=== PATIENT | female | born 1935 | race Caucasian/White ===

== ENCOUNTER → 2016-07-29 | Day surgery (SDC) | payer MEDICARE ==
[~2016-07-29] VITALS: Ht 152.4 cm; Wt 89.4 kg
[~2016-07-29] MED LIST: /AMIO20TA OR; /WARF25TA; /WARF25TA OR; /WARF25TA PO; /WARF5TA OR; ACET500T2 OR; ALPH0.156; ASPI81TA83 OR; ATEN50TA2 PO; BABY81CH OR; BENETAB2 PO; BISA10SU PR; BISAC5TA PO; CIPR500T3 PO; COUM2.5T11 PO; D5W/0.2% SODIUM CHLORIDE 250 ML IV SCH; ECOT81TA5 PO; ERYTHROMYCIN OPHTH OINT As Ordered ONE; ERYTHROMYCIN OPHTH OINT XX ONE; FLEC50TA2 PO; FURO20TA2 PO; GLIP5TAB8 PO; HYDR25TA6 PO; Hydroxychloroquine OR; IMDU60TA PO; ISOSORBIDE MONONITRATE PO; LABETALOL HCL 100 MG/20 ML VIAL As Ordered ONE; LIDOCAINE 2% W/EPIN INJ 20ML **PRES FREE As Ordered ONE; LIDOCAINE 2% W/EPIN INJ 20ML **PRES FREE XX ONE; LIDOCAINE 4% INJ 5 ML AMP XX ONE; LISI20TA5 OR; LOPR50TA OR; METF500T4 OR; METF500T4 PO; MIDAZOLAM INJ 2 MG/2 ML VIAL (J2250) As Ordered ONE; MOM30SS PO; MULTIVIT OR; MULTIVIT PO; NAPR250T PO; NITR0.4S SL; OMEP20TA7 OR; PERC10TA PO; PERC5TAB6 PO; PERC5TAB8 PO; PERC7.5T12 PO; PERC7.5T8 PO; PERCOCET PO; POVIDONE-IODINE 5% OPHTH PREP SOL 30ML As Ordered ONE; PRAV40TA2 PO; PRESCAP PO; Pradaxa PO; SIMV40TA2 OR; SITA50TAB PO; SPIR25TA2 PO; TYLE325T5 PO; VITA-113 PO; VITA100T OR; XARE15TA PO; [UNRECOGNIZED DRUG - OTHER] OS; [UNRECOGNIZED DRUG - OTHER] PO; fentaNYL 100 MCG/2 ML INJECTION (J3010) As Ordered ONE; hydroxychloroquine PO; iron OR; miralax OR
[2016-07-29] MEDS: LIDOCAINE 4% INJ 5 ML AMP OU ONE (12:30)
[2016-07-29 15:55] VITALS: BP 150/68
--- NOTE | 2016-07-30 12:11 | RO ---
DATE OF PROCEDURE: 07/29/2016 PREOPERATIVE DIAGNOSIS: Visually significant dermatochalasis both eyes. POSTOPERATIVE DIAGNOSIS: Visually significant dermatochalasis both eyes status post blepharoplasty. PROCEDURE: Bilateral upper lid blepharoplasty. SURGEON: Socrates Dunaway DO FACS TOPOGRAPHICAL SURVEYOR: ANESTHESIA: Local, 2% lidocaine with epinephrine and sedation and monitoring by anesthesia. INDICATION: Visually significant dermatochalasis both eyes. ESTIMATED BLOOD LOSS: 5 mL. COMPLICATIONS: None. PROCEDURE IN DETAIL: After obtaining informed consent, the patient was taken to the operating room and prepped and draped in a sterile fashion. The upper lids were marked for blepharoplasty and 2% lidocaine with epinephrine was injected into the upper lids for anesthetic. Bovie cutting cautery was used to remove the excess skin and subcutaneous tissues, including a muscle flap of the orbicularis. The lids were closed with #6-0 nylon running suture bilaterally. At the end of the case, there was no active hemorrhaging. The patient will apply ice packs and will use erythromycin ointment four times a day, and will followup in the office.
== END | disposition home or self-care (01) ==
LOC: M SDC 11:22
PROVIDERS: ATTEND Ophthalmology
DX: H02.831 Dermatochalasis of right upper eyelid (principal); H02.834 Dermatochalasis of left upper eyelid; E11.9 Type 2 diabetes mellitus without complications; I48.91 Unspecified atrial fibrillation; G47.30 Sleep apnea, unspecified; Z79.899 Other long term (current) drug therapy; Z79.02 Long term (current) use of antithrombotics/antiplatelets; Z88.0 Allergy status to penicillin; I10 Essential (primary) hypertension; E78.5 Hyperlipidemia, unspecified; D64.9 Anemia, unspecified
CPT/HCPCS: 15823; 88302; J2250; J3010

== ENCOUNTER → 2016-08-16 | Outpatient (REF) | payer MEDICARE ==
[~2016-08-16] MED LIST changes: -D5W/0.2% SODIUM CHLORIDE 250 ML IV SCH; -ERYTHROMYCIN OPHTH OINT As Ordered ONE; -ERYTHROMYCIN OPHTH OINT XX ONE; -LABETALOL HCL 100 MG/20 ML VIAL As Ordered ONE; -LIDOCAINE 2% W/EPIN INJ 20ML **PRES FREE As Ordered ONE; -LIDOCAINE 2% W/EPIN INJ 20ML **PRES FREE XX ONE; -LIDOCAINE 4% INJ 5 ML AMP XX ONE; -MIDAZOLAM INJ 2 MG/2 ML VIAL (J2250) As Ordered ONE; -POVIDONE-IODINE 5% OPHTH PREP SOL 30ML As Ordered ONE; -fentaNYL 100 MCG/2 ML INJECTION (J3010) As Ordered ONE
== END ==
LOC: M LAB REF 11:52
PROVIDERS: ATTEND Nurse Practitioner Adult Health
DX: R07.2 Precordial pain (principal)

== ENCOUNTER 2017-03-01 07:14 | Emergency (ER) | payer MEDICARE ==
[~2017-03-01] VITALS: Ht 152.4 cm; Wt 87.7 kg
[~2017-03-01 07:14] MED LIST changes: -COUM2.5T11 PO; +COUM2.5T17 PO; +PERC5TAB12 PO; -PERC5TAB6 PO
[2017-03-01] MEDS ORDERED: HYDR200T3 (07:44)
[2017-03-01] MEDS ORDERED: BRIM1OPD (07:44)
[2017-03-01] MEDS ORDERED: NITR0.4S14 (07:44)
[2017-03-01] MEDS ORDERED: ASPIRIN 81 MG CHEW TABLET PO ONE (07:45)
[2017-03-01 08:36] LABS: INR 1.05
[2017-03-01 08:54] LABS: CALCIUM LEVEL 9.1 MG/DL (8.8-10.2); CREATININE FOR GFR 1.34 MG/DL (0.55-1.02); GLOMERULAR FILTRATION RATE 40.2 (>32); POTASSIUM SERUM 4.3 MEQ/L (3.5-5.1)
[2017-03-01 08:57] LABS: BASO % 0.6 % (0.0-1.0); EOS # 0.2 K/mm3 (0.0-0.50); LARGE UNSTAINED CELL # 0.1 K/mm3 (0.0-0.4); LARGE UNSTAINED CELL % 2.3 % (0.0-4.0); LYMPH # 0.8 K/mm3 (1.5-4.5); LYMPH % 16.7 % (24.0-44.0); MEAN CORPUSCULAR HEMOGLOBIN 29.5 pg (27.0-33.0); MEAN CORPUSCULAR HGB CONC 32.7 g/dl (32.0-36.5); MEAN CORPUSCULAR VOLUME 90.3 fl (80.0-96.0); MONO # 0.4 K/mm3 (0.0-0.8); MONO % 9.4 % (0.0-5.0); NEUTROPHILS # 3.2 K/mm3 (1.8-7.7); PLATELET COUNT, AUTOMATED 285 k/mm3 (150-450); RED CELL DISTRIBUTION WIDTH 14.2 % (11.5-14.5); WHITE BLOOD COUNT 4.7 K/mm3 (4.0-10.0)
[2017-03-01] MEDS ORDERED: AMIODARONE HCL 150 MG in APPROPRIATE DILUENT 1 EA IV STA ×2 (09:10→10:01)
[2017-03-01] MEDS ORDERED: METOPROLOL TART 50 MG TAB PO ONE ×2 (09:15→12:30)
--- NOTE | 2017-03-01 11:14 | REP ---
PORTABLE CHEST: AP portable view of the chest is performed and compared to prior study of 05/22/2015. Bibasilar interstitial prominence is stable. There is cardiomegaly. There is no acute infiltrate. There is mild calcification of the thoracic aorta. The mediastinal silhouette is unchanged. IMPRESSION: Cardiomegaly and stable chronic findings without evidence of acute infiltrate. Signed by Christopher Davies MD 03/01/2017 07:30 P
[2017-03-01] MEDS: METOPROLOL 5 MG/5 ML VIAL IV SCH ×3 (11:32→11:42)
[2017-03-01 11:42] VITALS: BP 136/80
[2017-03-01] MEDS ORDERED: METO100T5 PO (14:01)
[2017-03-01] MEDS ORDERED: PACE200T PO (14:01)
[2017-03-01 14:30] VITALS: BP 179/75
--- NOTE | 2017-03-02 05:57 | ECGEPIP ---
Stationary ECG Study [facility] - ED Test Date: 2017-03-01 Pat Name: BIPIN YUSUF Department: Room: - Gender: F Methods Examiner: janette : 1935 Requested By: Jabari Jacobs Order Number: [id number] Reading MD: Jabari Francis Measurements Intervals [place] Rate: 150 P: 177 DC: 74 QRS: 71 QRSD: 143 T: -1 QT: 316 QTc: 500 Interpretive Statements ATRIAL FIBRILLATION V FLUTTER WITH 2:1 FIXED RATIO RIGHT BUNDLE BRANCH BLOCK SIMILAR TO 05/22/15 Electronically Signed On 03-02-2017 5:57:38 EDT by Jabari Francis
--- NOTE | 2017-03-02 06:04 | ECGEPIP ---
Stationary ECG Study [facility] - ED Test Date: 2017-03-01 Pat Name: BIPIN YUSUF Department: Room: - Gender: F Stallion Manager: : 1935 Requested By: Jabari Jacobs Order Number: [id number] Reading MD: Jabari Francis Measurements Intervals [place] Rate: 97 P: 16 HI: 193 QRS: 36 QRSD: 148 T: 23 QT: 362 QTc: 460 Interpretive Statements ATRIAL FIBRILLATION WIHT OCCASIONAL SINUS RHYTHM RIGHT BUNDLE BRANCH BLOCK Electronically Signed On 03-02-2017 6:03:48 EDT by Jabari Fracnis
--- NOTE | 2017-03-02 06:04 | ECGEPIP ---
Stationary ECG Study [facility] - ED Test Date: 2017-03-01 Pat Name: BIPIN YUSUF Department: Room: - Gender: F Eyeglass Cutter: jeliceo : 1935 Requested By: Jabari Jacobs Order Number: [id number] Reading MD: Jabari Francis Measurements Intervals [place] Rate: 59 P: 2 [place]: 174 QRS: 36 QRSD: 146 T: 32 QT: 425 QTc: 423 Interpretive Statements SINUS BRADYCARDIA WITH SINUS ARRHYTHMIA RIGHT BUNDLE BRANCH BLOCK RHYTHM CHANGE COMPARED TO PRIOR ON SAME DATE Electronically Signed On 03-02-2017 6:04:19 EDT by Jabari Francis
== END 2017-03-01 14:52 | disposition home or self-care (01) ==
LOC: M ED 07:14
DX: I48.0 Paroxysmal atrial fibrillation (principal); I25.10 Atherosclerotic heart disease of native coronary artery without angina pectoris; I12.9 Hypertensive chronic kidney disease with stage 1 through stage 4 chronic kidney disease, or unspecified chronic kidney disease; E78.4 Other hyperlipidemia; N18.4 Chronic kidney disease, stage 4 (severe)

== ENCOUNTER 2017-04-29 11:03 | Emergency (ER) | payer MEDICARE ==
[~2017-04-29] VITALS: Ht 152.4 cm; Wt 88.6 kg
[~2017-04-29 11:03] MED LIST changes: +BRIM1OPD; +HYDR200T3; +METO100T5 PO; +NITR0.4S14; +PACE200T PO
--- NOTE | 2017-04-29 14:21 | REP ---
Clinical: Throat pain. Technique: AP and lateral soft tissue neck radiographs. Findings: The airway appears patent, midline and normal. The surrounding soft tissues are grossly unremarkable and without prevertebral soft tissue swelling, subcutaneous emphysema, or radiodense foreign body. Advanced degenerative disc osteophyte complexes noted throughout the visualized cervical and upper thoracic spine. Impression: No obvious swelling, subcutaneous emphysema or foreign body. Advanced degenerative changes of the cervical spine. Signed by John Chavez MD 04/29/2017 02:12 P
[2017-04-29 14:37] VITALS: BP 140/75
== END 2017-04-29 14:41 | disposition home or self-care (01) ==
LOC: M ED 11:03
DX: J04.0 Acute laryngitis (principal); I10 Essential (primary) hypertension; Z79.899 Other long term (current) drug therapy; Z79.82 Long term (current) use of aspirin; Z88.0 Allergy status to penicillin

== ENCOUNTER 2017-06-19 08:20 | Day surgery (SDC) | payer MEDICARE ==
[2017-06-19] MEDS ORDERED: NS 1,000 ML IV (09:30)
[2017-06-19] MEDS ORDERED: LIDOCAINE 2% INJ 100 MG/5 ML SDV (FOR ANES.) As Ordered (10:00)
[2017-06-19] MEDS ORDERED: PROPOFOL 200 MG/20 ML VIAL As Ordered (10:00)
== END 2017-06-19 10:30 | disposition home or self-care (01) ==
LOC: M OPP 08:20
DX: R19.5 Other fecal abnormalities (principal); K62.5 Hemorrhage of anus and rectum; Z86.010 Personal history of colon polyps; D12.4 Benign neoplasm of descending colon; D12.3 Benign neoplasm of transverse colon; D12.2 Benign neoplasm of ascending colon; D12.0 Benign neoplasm of cecum; R00.8 Other abnormalities of heart beat; I48.91 Unspecified atrial fibrillation; R07.89 Other chest pain; I10 Essential (primary) hypertension; E78.5 Hyperlipidemia, unspecified; R60.0 Localized edema; E11.9 Type 2 diabetes mellitus without complications; K57.32 Diverticulitis of large intestine without perforation or abscess without bleeding; K21.9 Gastro-esophageal reflux disease without esophagitis; R12 Heartburn; M19.90 Unspecified osteoarthritis, unspecified site; M54.9 Dorsalgia, unspecified; Z78.0 Asymptomatic menopausal state; G47.30 Sleep apnea, unspecified; R06.83 Snoring; K44.9 Diaphragmatic hernia without obstruction or gangrene; E66.9 Obesity, unspecified; Z87.19 Personal history of other diseases of the digestive system; Z85.828 Personal history of other malignant neoplasm of skin; Z96.643 Presence of artificial hip joint, bilateral; Z96.653 Presence of artificial knee joint, bilateral; Z88.0 Allergy status to penicillin; Z79.82 Long term (current) use of aspirin; Z79.899 Other long term (current) drug therapy; Z79.01 Long term (current) use of anticoagulants
CPT/HCPCS: 45385

== ENCOUNTER → 2017-09-24 | Outpatient (REF) | payer MEDICARE ==
[2017-09-24 20:35] LABS: PHOSPHORUS LEVEL 4.8 MG/DL (2.5-4.9)
== END ==
LOC: M LAB REF 17:41
DX: N18.3 Chronic kidney disease, stage 3 (moderate) (principal)
CPT/HCPCS: 84100

== ENCOUNTER → 2018-07-15 | Outpatient (CLI) | payer MEDICARE ==
[~2018-07-15] MED LIST changes: +SPIR-10 PO; -SPIR25TA2 PO
--- NOTE | 2018-07-15 18:53 | REP ---
RENAL ULTRASOUND: Real-time sonographic evaluation of the kidneys are performed. The kidneys are normal in size and echotexture, right kidney measuring 10.6 x 4.8 x 4.3 cm and left kidney 11.7 x 5.4 x 5.6 cm. There is no hydronephrosis bilaterally. There are linear vascular calcifications in each kidney. No renal mass is seen. Urinary bladder is not distended and not evaluated. IMPRESSION: No hydronephrosis or mass identified. Electronically Signed by Christopher Davies MD 07/16/2018 05:30 P
== END ==
LOC: M RAD 13:08
PROVIDERS: ATTEND Internal Medicine Nephrology
DX: N18.4 Chronic kidney disease, stage 4 (severe) (principal); E11.22 Type 2 diabetes mellitus with diabetic chronic kidney disease

== ENCOUNTER 2018-08-05 11:16 | Emergency (ER) | payer MEDICARE ==
[~2018-08-05] VITALS: Ht 152.4 cm; Wt 85.5 kg
[2018-08-05] MEDS ORDERED: AMLO5TAB6 PO (11:38)
[2018-08-05] MEDS ORDERED: NS 500 ML IV ONE (12:00)
[2018-08-05 12:25] LABS: BASO # 0.1 10^3/uL (0.0-0.2); BASO % 0.6 % (0.0-1.0); EOS % 0.1 % (0.0-3.0); HEMATOCRIT 37.4 % (36.0-47.0); HEMOGLOBIN 11.6 g/dl (12.0-15.5); LYMPH # 0.7 10^3/uL (1.5-4.5); LYMPH % 7.9 % (24.0-44.0); MEAN CORPUSCULAR HEMOGLOBIN 28.2 pg (27.0-33.0); MONO # 0.6 10^3/uL (0.0-0.8); MONO % 7.5 % (0.0-5.0); NEUTROPHILS # 6.9 10^3/uL (1.8-7.7); NEUTROPHILS % 83.7 % (36.0-66.0); PLATELET COUNT, AUTOMATED 216 10^3/uL (150-450); RED BLOOD COUNT 4.11 10^6/uL (4.00-5.40); WHITE BLOOD COUNT 8.2 10^3/uL (4.0-10.0)
--- NOTE | 2018-08-05 12:45 | REP ---
Clinical: Right flank pain. Technique: Axial noncontrast images from the lung bases to the pubic symphysis with coronal and sagittal re-formations. Comparison: 03/04/2014. Findings: Lung bases demonstrate chronic age-related interstitial changes. Liver, spleen, pancreas, bilateral adrenal glands and kidneys are relatively normal / stable. Evidence of prior cholecystectomy. There is no evidence for acute perinephric stranding, hydroureteronephrosis, intrarenal or obvious obstructing ureteral calculi identified. Evaluation of the pelvis and specifically the bladder is well as the distal ureters is severely limited due to beam-hardening artifact from bilateral hip prostheses. Visualized enteric system is without obstruction or acute inflammatory process. Limited evaluation of the pelvis demonstrates relatively normal uterus / adnexa. No ascites. No free air. No adenopathy. Atherosclerotic changes to the aorta and vasculature noted without aneurysm. Musculoskeletal structures demonstrate degenerative changes without focal osseous abnormality. Impression: 1. Primarily chronic-appearing changes as noted above. 2. No obvious acute abdominopelvic pathology appreciated. 3. Specifically, no hydronephrosis, perinephric stranding, or urinary tract calcifications are identified. Electronically Signed by John Chavez MD 08/05/2018 12:37 P
[2018-08-05 12:54] LABS: ALBUMIN 3.6 GM/DL (3.2-5.2); BILIRUBIN,TOTAL 0.4 MG/DL (0.2-1.0); C REACTIVE PROTEIN QUANTITATIV 0.77 MG/DL (0.00-0.30); CALCIUM LEVEL 8.7 MG/DL (8.8-10.2); CREATININE FOR GFR 1.64 MG/DL (0.55-1.30); GLOMERULAR FILTRATION RATE 31.7 (>32); POTASSIUM SERUM 4.5 MEQ/L (3.5-5.1); TOTAL PROTEIN 7.3 GM/DL (6.4-8.2)
[2018-08-05 13:30] VITALS: BP 194/80
[2018-08-05] MEDS ORDERED: BACT800T5 PO (14:39)
[2018-08-05] MEDS ORDERED: BACTRIM 160MG/800MG DS TAB PO ONE (14:45)
== END 2018-08-05 14:46 | disposition home or self-care (01) ==
LOC: M ED 11:16
DX: N39.0 Urinary tract infection, site not specified (principal); I12.9 Hypertensive chronic kidney disease with stage 1 through stage 4 chronic kidney disease, or unspecified chronic kidney disease; E11.9 Type 2 diabetes mellitus without complications; I50.9 Heart failure, unspecified; N18.4 Chronic kidney disease, stage 4 (severe); K44.9 Diaphragmatic hernia without obstruction or gangrene; Z79.899 Other long term (current) drug therapy; Z79.01 Long term (current) use of anticoagulants; Z88.0 Allergy status to penicillin

== ENCOUNTER → 2018-10-22 | Outpatient (REF) | payer MEDICARE ==
[~2018-10-22] MED LIST changes: -/AMIO20TA OR; -/WARF25TA; -/WARF25TA OR; -/WARF25TA PO; -/WARF5TA OR; +AMIO1TAB OR; +AMLO5TAB6 PO; +BACT800T5 PO; +COUM1TAB17 OR; +COUM1TAB18; +COUM1TAB18 OR; +COUM1TAB18 PO
== END ==
LOC: M LAB REF 17:18
PROVIDERS: ATTEND Internal Medicine Nephrology
DX: N18.4 Chronic kidney disease, stage 4 (severe) (principal); N39.0 Urinary tract infection, site not specified

== ENCOUNTER → 2019-05-03 | Outpatient (REF) | payer MEDICARE ==
[~2019-05-03] MED LIST changes: +ADVA230A INH; +TORS10TA3 PO; +VENTAER INH
[2019-05-03 19:31] LABS: PERCENT SATURATION 10.1 % (13.2-45.0)
== END ==
LOC: M LAB REF 16:46
PROVIDERS: ATTEND Internal Medicine Nephrology
DX: N18.4 Chronic kidney disease, stage 4 (severe) (principal); D50.9 Iron deficiency anemia, unspecified

== ENCOUNTER 2019-06-07 09:59 | Outpatient (CLI) | payer MEDICARE ==
[2019-06-07] VITALS (8 sets, daily range): BP systolic 132–155; BP diastolic 48–89
[~2019-06-07] VITALS: Ht 152.4 cm; Wt 82.7 kg
[~2019-06-07 09:59] MED LIST changes: -ADVA230A INH; -TORS10TA3 PO; -VENTAER INH
[2019-06-07] MEDS ORDERED: EPINEPHrine INJ 1 MG/ML 1ML VIAL IM PRN (10:15)
[2019-06-07] MEDS ORDERED: NS 1,000 ML IV SCH (10:15)
[2019-06-07] MEDS ORDERED: methylPREDNISolone INJ 125 MG/2 ML VIAL (J2930) IV PRN (10:15)
[2019-06-07] MEDS ORDERED: ACETAMINOPHEN TAB 650MG DOSE (2X325MG) PO ONE (10:15)
[2019-06-07] MEDS ORDERED: IRON SUCROSE 25 MG in NS 25 ML IV ONE (10:15)
[2019-06-07] MEDS ORDERED: ALBUTEROL SULFATE 2.5 MG/0.5 ML INH NEB SOLN INH PRN (10:15)
[2019-06-07] MEDS ORDERED: diphenhydrAMINE INJ 50MG/ML VIAL (J1200) IV PRN (10:15)
[2019-06-07] MEDS ORDERED: IRON SUCROSE 300 MG in NS 250 ML OVER 90 MIN. IV ONE (11:15)
[2019-06-07] MEDS ORDERED: TORS10TA3 PO (12:21)
[2019-06-07] MEDS ORDERED: VENTAER INH (12:21)
[2019-06-07] MEDS ORDERED: ADVA230A INH (12:21)
== END 2019-06-07 15:20 | disposition home or self-care (01) ==
LOC: M INFU 09:59
PROVIDERS: ATTEND Internal Medicine Nephrology
DX: N18.9 Chronic kidney disease, unspecified (principal); D50.9 Iron deficiency anemia, unspecified
CPT/HCPCS: 96365; 96366; J1756

== ENCOUNTER → 2019-06-22 | Outpatient (REF) | payer MEDICARE ==
[~2019-06-22] MED LIST changes: +ADVA230A INH; +TORS10TA3 PO; +VENTAER INH
[2019-06-22 19:32] LABS: ATYPICAL LYMPH 1 % (0-5); BASOPHILS 2 % (0-1); EOSINOPHILS 2 % (0-3); LYMPHOCYTES 8 % (16-44); MONOCYTES 6 % (0-5); NEUTROPHILS 81 % (28-66)
[2019-06-22 19:33] LABS: MICROCYTOSIS 2+
[2019-06-22 19:34] LABS: OVALOCYTES 1+; PLATELET ESTIMATE NORMAL (NORMAL)
== END ==
LOC: M LAB REF 16:42
PROVIDERS: ATTEND Nurse Practitioner Adult Health
DX: N18.9 Chronic kidney disease, unspecified (principal); D63.1 Anemia in chronic kidney disease

== ENCOUNTER → 2019-09-09 | Outpatient (REF) | payer MEDICARE ==
[2019-09-09 14:52] LABS: PERCENT SATURATION 8.9 % (13.2-45.0)
== END ==
LOC: M LAB REF 13:25
PROVIDERS: ATTEND Nurse Practitioner Family
DX: D50.9 Iron deficiency anemia, unspecified (principal)

== ENCOUNTER 2019-09-27 10:13 | Outpatient (CLI) | payer MEDICARE ==
[~2019-09-27] VITALS: Ht 152.4 cm; Wt 86.3 kg
[2019-09-27 10:20] VITALS: BP 168/70
[2019-09-27] MEDS ORDERED: diphenhydrAMINE 50MG/ML VIAL (J1200) IV PRN (10:30)
[2019-09-27] MEDS ORDERED: methylPREDNISolone INJ 125 MG/2 ML VIAL (J2930) IV PRN (10:30)
[2019-09-27] MEDS ORDERED: EPINEPHrine INJ 1 MG/ML 1ML AMP IM PRN (10:30)
[2019-09-27] MEDS ORDERED: ALBUTEROL SULFATE 2.5 MG/0.5 ML INH NEB SOLN INH PRN (10:30)
[2019-09-27] MEDS ORDERED: FERRIC CARBOXYMALTOSE INJ 750 MG in NS 250 ML IV ONE (10:30)
[2019-09-27] MEDS ORDERED: NS 1,000 ML IV SCH (10:30)
[2019-09-27 11:00] VITALS: BP 164/69
[2019-09-27 11:54] VITALS: BP 154/77
[2019-09-27 12:30] VITALS: BP 166/68
== END 2019-09-27 12:30 | disposition home or self-care (01) ==
LOC: M INFU 10:13
PROVIDERS: ATTEND Internal Medicine Nephrology
DX: N18.9 Chronic kidney disease, unspecified (principal); D50.9 Iron deficiency anemia, unspecified; Z88.0 Allergy status to penicillin
CPT/HCPCS: 96365; J1439

== ENCOUNTER 2019-10-04 10:23 | Outpatient (CLI) | payer MEDICARE ==
[~2019-10-04] VITALS: Ht 152.4 cm; Wt 86.3 kg
[2019-10-04 10:30] VITALS: BP 162/70
[2019-10-04] MEDS ORDERED: ALBUTEROL SULFATE 2.5 MG/0.5 ML INH NEB SOLN INH PRN (10:45)
[2019-10-04] MEDS ORDERED: methylPREDNISolone INJ 125 MG/2 ML VIAL (J2930) IV PRN (10:45)
[2019-10-04] MEDS ORDERED: NS 1,000 ML IV SCH (10:45)
[2019-10-04] MEDS ORDERED: diphenhydrAMINE 50MG/ML VIAL (J1200) IV PRN (10:45)
[2019-10-04] MEDS ORDERED: EPINEPHrine INJ 1 MG/ML 1ML AMP IM PRN (10:45)
[2019-10-04] MEDS ORDERED: FERRIC CARBOXYMALTOSE INJ 750 MG in NS 250 ML IV ONE (10:45)
[2019-10-04 12:20] VITALS: BP 167/71
[2019-10-04 12:40] VITALS: BP 162/70
== END 2019-10-04 12:40 | disposition home or self-care (01) ==
LOC: M INFU 10:23
PROVIDERS: ATTEND Internal Medicine Nephrology
DX: D50.9 Iron deficiency anemia, unspecified (principal); Z88.0 Allergy status to penicillin
CPT/HCPCS: 96365; J1439

== ENCOUNTER → 2019-11-30 | Outpatient (REF) | payer MEDICARE | LOC: M LAB REF 16:01 | PROVIDERS: ATTEND Nurse Practitioner Adult Health | DX: M10.9 Gout, unspecified (principal) ==

== ENCOUNTER → 2019-12-16 | Outpatient (REF) | payer MEDICARE ==
[~2019-12-16] MED LIST changes: +AMLO1TAB24 PO; -AMLO5TAB6 PO
[2019-12-16 18:56] LABS: PERCENT SATURATION 38.5 % (13.2-45.0)
== END ==
LOC: M LAB REF 17:27
PROVIDERS: ATTEND Nurse Practitioner Family
DX: D50.9 Iron deficiency anemia, unspecified (principal)

== ENCOUNTER → 2020-03-01 | Outpatient (REF) | payer MEDICARE ==
[2020-03-01 19:25] LABS: BASOPHILS 2 % (0-1); EOSINOPHILS 3 % (0-3); LYMPHOCYTES 2 % (16-44); MONOCYTES 5 % (0-5); NEUTROPHILS 88 % (28-66)
[2020-03-01 19:26] LABS: ANISOCYTOSIS 1+; PLATELET ESTIMATE NORMAL (NORMAL)
== END ==
LOC: M LAB REF 16:25
PROVIDERS: ATTEND Nurse Practitioner Adult Health
DX: D72.9 Disorder of white blood cells, unspecified (principal)

== ENCOUNTER → 2020-04-04 | Outpatient (REF) | payer MEDICARE ==
[2020-04-04 17:42] LABS: ALBUMIN 3.8 GM/DL (3.2-5.2); BILIRUBIN,TOTAL 0.3 MG/DL (0.2-1.0); C REACTIVE PROTEIN QUANTITATIV 0.34 MG/DL (0.00-0.30); CALCIUM LEVEL 9.1 MG/DL (8.8-10.2); CREATININE FOR GFR 2.46 MG/DL (0.55-1.30); GLOMERULAR FILTRATION RATE 19.8 (>32); POTASSIUM SERUM 4.3 MEQ/L (3.5-5.1); RHEUMATOID FACTOR QUANT 10.2 IU/ML (<15.0); TOTAL PROTEIN 6.7 GM/DL (6.4-8.2); URIC ACID 7.3 MG/DL (2.6-6.0)
[2020-04-07 01:07] LABS: CYCLIC CITRULLINATED PEPTIDE 7 units (0-19); SSA SJOGRENS A <0.2 AI (0.0-0.9); SSB SJOGRENS B <0.2 AI (0.0-0.9)
== END ==
LOC: M SFHCRHEU 14:05
PROVIDERS: ATTEND Internal Medicine
DX: M05.79 Rheumatoid arthritis with rheumatoid factor of multiple sites without organ or systems involvement (principal); M1A.39X0 Chronic gout due to renal impairment, multiple sites, without tophus (tophi); M35.00 Sjogren syndrome, unspecified
CPT/HCPCS: 80053; 84550; 85652; 86140; 86200; 86235; 86431; G0463

== ENCOUNTER → 2020-04-07 | Outpatient (CLI) | payer MEDICARE ==
--- NOTE | 2020-04-08 15:23 | REPPI ---
INDICATION: M05.79 RHEUMATOID ARTHRITIS INVOLVING MULTIPLE SITES WITH PO. COMPARISON: Comparison radiographs are from November 07, 2004.. TECHNIQUE: Total of 8 views, 4 from each hand. FINDINGS: Four views of the left hand demonstrate diffuse osteopenia and some juxta-articular osteopenia. There is vascular calcification. Osteoarthritic changes are seen in the 1st and 2nd carpometacarpal articulations. There is osteoarthritic spurring at the IP joint of the thumb. There is evidence of erosive osteoarthritis involving the DIP joint of the index finger with some deformity. Soft tissue swelling is seen at the PIP and DIP joint of the index finger on the left and to a greater extent the PIP joint of the long finger. There are erosive changes at the PIP joint of the long and DIP joint of the long finger. Some erosions are seen at the MCP joint of the small finger. Four views of the right hand demonstrate similar changes. There is diffuse osteopenia. Some juxta-articular osteopenia is seen. There are multifocal osteoarthritic changes including the 1st MCP, 1st HALFWAY, and 1st IP joints. Erosive changes are noted at the DIP joint of the index finger. The DIP joint arthropathy and PIP joint arthropathy are less pronounced on the right than on the left. Osteoarthritic changes are noted at the PIP and DIP joints of the fingers and the 2nd and 5th MCP joint on the right. Vascular calcification is noted. IMPRESSION: Advanced erosive osteoarthropathy bilaterally. Juxta-articular and diffuse osteopenia.. <Electronically signed by Dashawn Helton > 04/08/20 [id number]
== END ==
LOC: M PLAIMG 14:25
PROVIDERS: ATTEND Internal Medicine
DX: M85.841 Other specified disorders of bone density and structure, right hand (principal); M85.842 Other specified disorders of bone density and structure, left hand; M19.041 Primary osteoarthritis, right hand; M19.042 Primary osteoarthritis, left hand; M05.79 Rheumatoid arthritis with rheumatoid factor of multiple sites without organ or systems involvement

== ENCOUNTER → 2020-04-09 | Outpatient (REF) | payer MEDICARE | LOC: M LAB REF 17:15 | PROVIDERS: ATTEND Internal Medicine Nephrology | DX: N18.4 Chronic kidney disease, stage 4 (severe) (principal); Z12.10 Encounter for screening for malignant neoplasm of intestinal tract, unspecified ==

== ENCOUNTER → 2020-06-19 | Outpatient (REF) | payer MEDICARE ==
[2020-06-19 17:37] LABS: PERCENT SATURATION 38.1 % (13.2-45.0)
== END ==
LOC: M LAB REF 16:45
PROVIDERS: ATTEND Internal Medicine Nephrology
DX: D50.9 Iron deficiency anemia, unspecified (principal)

== ENCOUNTER → 2020-06-29 | Outpatient (REF) | payer MEDICARE | LOC: M LAB REF 16:05 | PROVIDERS: ATTEND Nurse Practitioner Adult Health | DX: I13.0 Hypertensive heart and chronic kidney disease with heart failure and stage 1 through stage 4 chronic kidney disease, or unspecified chronic kidney disease (principal); I50.32 Chronic diastolic (congestive) heart failure; N18.9 Chronic kidney disease, unspecified ==

== ENCOUNTER 2020-09-21 18:04 | Inpatient (IN) | payer MEDICARE ==
[~2020-09-21] VITALS: Ht 152.4 cm; Wt 81.9 kg
[2020-09-21] MEDS ORDERED: ACETAMINOPHEN 325 MG TAB PO ONE (18:35)
[2020-09-21 18:56] LABS: BASO # 0.1 10^3/uL (0.0-0.2); BASO % 0.3 % (0.0-1.0); EOS % 0.1 % (0.0-3.0); HEMATOCRIT 37.9 % (36.0-47.0); HEMOGLOBIN 11.8 g/dl (12.0-15.5); LYMPH # 0.5 10^3/uL (1.5-5.0); LYMPH % 2.7 % (24.0-44.0); MEAN CORPUSCULAR HEMOGLOBIN 28.3 pg (27.0-33.0); MEAN CORPUSCULAR HGB CONC 31.1 g/dl (32.0-36.5); MEAN CORPUSCULAR VOLUME 90.9 fl (80.0-96.0); MONO % 5.3 % (2.0-8.0); NEUTROPHILS # 16.4 10^3/uL (1.5-8.5); PLATELET COUNT, AUTOMATED 214 10^3/uL (150-450); RED BLOOD COUNT 4.17 10^6/uL (4.00-5.40)
--- NOTE | 2020-09-21 19:31 | REP ---
INDICATION: DYSPNEA/COUGH. COMPARISON: 03/01/2017 also portable TECHNIQUE: Portable FINDINGS: The technique utilized in obtaining the radiograph has magnified the cardiac silhouette and accentuated the interstitial markings. There is cardiomegaly accentuated by technique. There is a diffuse increase in the interstitial markings throughout the lung underwood. There is a haziness throughout the pulmonary vascularity. No acute patchy parenchymal opacities or pleural effusions have developed. The left CP angle is not included on the radiograph. There is no significant change in appearance of the osseous structures. IMPRESSION: CHF <Electronically signed by Dejuan Puentes > 09/21/201926
[2020-09-21] MEDS ORDERED: cefTRIAXone SOD 1 GM in D5W MINI-BAG PLUS 50 ML IV ONE (19:40)
[2020-09-21] MEDS ORDERED: IBUPROFEN 600MG TAB PO ONE (21:00)
[2020-09-21 21:02] LABS: BLOOD UREA NITROGEN 44 MG/DL (7-18); GLUCOSE, FASTING 156 MG/DL (70-100)
[2020-09-21 21:03] LABS: ALT/SGPT 19 IU/L (0-32); CARBON DIOXIDE LEVEL 26 mmol/L (20-29); CHLORIDE LEVEL 103 MEQ/L (98-107); CK-MB VALUE MASS < 1.0 NG/ML (<3.6); CPK CREATINE PHOSPHOKINASE 188 U/L (26-192); CREATININE FOR GFR 2.05 MG/DL (0.55-1.30); GLOMERULAR FILTRATION RATE 24.4 (>32); MB/CK RELATIVE INDEX 0.53 (< OR =4); POTASSIUM SERUM 4.5 MEQ/L (3.5-5.1); SODIUM LEVEL 137 MEQ/L (136-145)
[2020-09-21 21:04] LABS: ALBUMIN 4.2 GM/DL (3.2-5.2); BILIRUBIN,DIRECT 0.1 MG/DL (0.0-0.2); BILIRUBIN,TOTAL 0.5 MG/DL (0.2-1.0); NT-PRO BNP 2685 PG/ML (<450); TOTAL PROTEIN 7.7 GM/DL (6.4-8.2); TROPONIN I 0.02 NG/ML (< 0.10)
[2020-09-21] MEDS ORDERED: FUROSEMIDE 20MG/2ML VIAL (J1940) IV ONE ×2 (21:35→22:35)
[2020-09-21] MEDS ORDERED: PRAV40TA2 PO (22:02)
[2020-09-21] MEDS ORDERED: FAMO20TA PO (22:02)
[2020-09-21] MEDS ORDERED: PROAAER10 INH (22:02)
[2020-09-21] MEDS ORDERED: AMIO100T3 PO (22:02)
[2020-09-21] MEDS ORDERED: JANU25TA PO (22:02)
[2020-09-21] MEDS ORDERED: HYDR200T3 PO (22:02)
[2020-09-21] MEDS ORDERED: CYAN500T3 PO (22:02)
[2020-09-21] MEDS ORDERED: ACET-897 PO (22:02)
[2020-09-21] MEDS ORDERED: ISOS120T7 PO (22:02)
[2020-09-21] MEDS ORDERED: METO1TAB87 PO (22:02)
[2020-09-21] MEDS ORDERED: TORS20TA2 PO (22:02)
[2020-09-21] MEDS ORDERED: BRIM1OPD OS (22:02)
[2020-09-21] MEDS ORDERED: NITR4TASL SL (22:02)
[2020-09-21] MEDS ORDERED: ADV250INH INH (22:02)
[2020-09-21] MEDS ORDERED: FERR325T18 PO (22:26)
[2020-09-21] MEDS ORDERED: DEXTROSE 50% 50 ML SYRINGE IV PRN (22:35)
[2020-09-21] MEDS ORDERED: ACETAMINOPHEN TAB 650MG DOSE (2X325MG) PO PRN (22:35)
[2020-09-21] MEDS ORDERED: NITROGLYCERIN 0.4 MG SUBL TABLET SL PRN (22:35)
[2020-09-21] MEDS ORDERED: ALBUTEROL 90 MCG/ACT 8GM HFA INHALER INH PRN (22:35)
[2020-09-21] MEDS ORDERED: GLUCOSE 4GM CHEW TABLET PO PRN (22:35)
[2020-09-21] MEDS ORDERED: GLUCAGON INJ 1MG VIAL SC PRN (22:35)
[2020-09-21] MEDS ORDERED: MOM 30ML SUSPENSION UDC PO PRN (22:35)
[2020-09-21] MEDS ORDERED: MAALOX 30 ML SUSP *UDC PO PRN (22:35)
--- NOTE | 2020-09-21 23:11 | HPEPDOC ---
[facility] Medical History & Physical Date of Admission Sep 21, 2020 Date of Service: Sep 21, 2020 Attending Physician: SAKINA CAMPBELL MD History and Physical CHIEF COMPLAINT: [This is an 85 y/o female with c/c of dyspnea, malaise x2 days] HISTORY OF PRESENT ILLNESS: [This is an 85 y/o female with a pmh of CHF, DM2, a- fib, AGAPITO, GERD, HTN, rheumatoid and osteoarthritis who presents to the ED with her daughter after experiencing acute onset sob and general malaise for the past 2 days. Patient states that she has no idea what brought on her symptoms but just started feeling overall "terrible" so decided she should come into the ED. Patient states that she has been having fluxuating fever and chills, malaise, cough, runny nose, raspy voice, increased SOB and lower extremity edema. Patient states she has a hx of chf and feels as though she is in heart failure right now. Patient denies chest pains, abd pain, nausea, vomiting, diarrhea, constipation, dizziness, syncope, recent falls, dysuria, hematuria. Of note, upon presentation to the ED, patient meets SIRS criteria with white count of 18, hypoxia of 88, and temp of 103.3. CXR done in ER shows patterns indicative of active CHF. UA performed in ED positive for white cells, leuk est, bacteria. ] PAST MEDICAL HISTORY: 1. [See HPI PAST SURGICAL HISTORY: 1. [Cataracts]. 2. [Cardiac cath]. 3. [Cholecystectomy 4. Hemicolectomy 5. B/L total hip arthroplasty 6. B/L total knee arthroplasty]. SOCIAL HISTORY: Tobacco use:[Denies] ETOH: [Denies] Illicit drug use: [Denies] FAMILY HISTORY: Noncontributory ALLERGIES: Please see below. REVIEW OF SYSTEMS: CONSTITUTIONAL: [See HPI]. HEENT: [Denies sore throat]. CARDIOVASCULAR: [See HPI]. RESPIRATORY: [See HPI]. GASTROINTESTINAL: [See HPI]. GENITOURINARY: [See HPI]. SKIN: [Denies rash]. MUSCULOSKELETAL: [Denies acute back pain]. NEUROLOGICAL: [Denies paresthesia]. ENDOCRINE: [Admits to hx of DM]. HEMATOLOGIC/LYMPHATIC: [Denies easy bruising]. HOME MEDICATIONS: Please see below. PHYSICAL EXAMINATION: VITAL SIGNS: Please see below. GENERAL APPEARANCE: [This is an ill appearing 85 y/o female. She is slightly diaphoretic and is seated on the side of the bed leaning over her bedside tabl e.]. HEENT: [Patient's forehead is diaphoretic. No mass or lesion. EOMI. No scleral icterus. Nares patent. Patient is hard of hearing. B/L hearing aids in place. Oral mucosa moist, mild erythema of posterior pharynx. No exudates. Voice raspy.]. CARDIOVASCULAR: [regular rate and rhythm. No murmurs, rubs, gallops]. LUNGS: [Crackles appreciated at b/l lung bases. No accessory muscle use.]. ABDOMEN: [Soft, non-tender]. MUSCULOSKELETAL: [No joint deformity]. EXTREMITIES: [Pitting edema appreciated up to mid tibia. No skin changes or overlying erythema noted. Pulses intact. no clubbing, cyanosis.]. NEUROLOGICAL: [Speech clear. A+Ox3. No focal deficits]. PSYCHIATRIC: [Mood and affect appear appropriate]. LABORATORY DATA: See below. IMAGING: [CXR: FINDINGS: The technique utilized in obtaining the radiograph has magnified the cardiac silhouette and accentuated the interstitial markings. There is cardiomegaly accentuated by technique. There is a diffuse increase in the interstitial markings throughout the lung underwood. There is a haziness throughout the pulmonary vascularity. No acute patchy parenchymal opacities or pleural effusions have developed. The left CP angle is not included on the radiograph. There is no significant change in appearance of the osseous structures. IMPRESSION: CHF] MICROBIOLOGY: Please see below. ASSESSMENT: [This is an 85 y/o female with a pmh of CHF, DM2, a-fib, AGAPITO and GERD who reports to the ED with acute onset malaise and dyspnea. Patient found to meet SIRS criteria with a positive UA and a positive CXR indicative of CHF exacerbation.]. . PLAN: 1. [SIRS - Most likely source of infection is positive UA. Although patient is experiencing no dysuria, patient is having systemic symptoms so we will treat. Respiratory infection is entirely possible as well as chf chest x-ray can obstruct pneumonia. - Blood cultures pending, urine culture pending - One dose of rocephin given in the ED, will give a dose of cefepime as well for better coverage, as respiratory infection cannot be r/o as well - Day team can consider chest ct for further workup of possible respiratory infectious process - No fluids will be given right now, patient is fluid overloaded - Lactic acid negative in ED - Will admit to pcu on tele 2. Acute CHF exacerbation - Most likely cause of acute chf seems to be infection - Patients current BNP is markedly elevated at 2685. Will trend - 40mg of lasix given IV in ED, will continue 40 lasix iv q4h - Hold at home torsemide for now - Continuing home isosorbide, nitro, metoprolol - Supplemental o2 titrated to 88-92% 3. Hx of a-fib - patient dose not appear to be in a-fib at this time - continue at home amiodarone 4. CKD4 - Cr appears to be close to baseline - Not giving fluids due to fluid overload - Will monitor kidney function 5. DM - Sliding scale insulin, hypoglycemic protocol 6. AGAPITO - at home cpap 7. Rheumatoid arthritis - continue plaquenil 8. Gerd - continue famotidine 9. Dyslipidemia - continue pravastatin 10. DVT prophylaxis - Teds and heparin]. Vital Signs Vital Signs Date Time Temp Pulse Resp B/P (MAP) Pulse Ox O2 Delivery O2 Flow Rate FiO2 09/21/20 20:19 102.1 81 19 89 09/21/20 20:16 133/51 (78) 09/21/20 18:45 Nasal Cannula 2.0 Laboratory Data Labs 24H Laboratory Tests 2 09/21/20 18:46: Immature Granulocyte % (Auto) 0.6, Neutrophils (%) (Auto) 91.0H, Lymphocytes (%) (Auto) 2.7L, Monocytes (%) (Auto) 5.3, Eosinophils (%) (Auto) 0.1, Basophils (%) (Auto) 0.3, Neutrophils # (Auto) 16.4H, Lymphocytes # (Auto) 0.5L, Monocytes # (Auto) 1.0H, Eosinophils # (Auto) 0.0, Basophils # (Auto) 0.1, Nucleated Red Blood Cells % (auto) 0.0, Urine Color YELLOW, Urine Appearance CLEAR, Urine pH 5.0, Urine Specific [place] 1.009, Urine Protein 3+H, Urine Glucose (UA) NEGATIVE, Urine Ketones NEGATIVE, Urine Blood 1+H, Urine Nitrite NEGATIVE, Urine Bilirubin NEGATIVE, Urine Urobilinogen 0.2, Urine Leukocyte Esterase 2+H, Urine WBC (Auto) 69H, Urine RBC (Auto) 7H, Urine Hyaline Casts (Auto) 0, Urine Bacteria (Auto) 1+H, Urine Squamous Epithelial Cells 1, Urine Mucus (Auto) SMALL, Urine Sperm (Auto) , Anion Gap 8, Glomerular Filtration Rate 24.4L, Lac tic Acid Level 1.6, Calcium Level 9.0, Total Bilirubin 0.5, Direct Bilirubin 0.1, Aspartate Amino Transf (AST/SGOT) 30, Alanine Aminotransferase (ALT/SGPT) 19, Alkaline Phosphatase 101, Total Creatine Kinase 188, Creatine Kinase MB < 1.0, Creatine Kinase MB Relative Index 0.53, Troponin I 0.02, HF-Rqv-R-Type Natriuretic Peptide 2685H, Total Protein 7.7, Albumin 4.2, Albumin/Globulin Ratio 1.2, Thyroid Stimulating Hormone (TSH) 1.180 CBC/BMP Laboratory Tests 09/21/20 18:46 Microbiology Microbiology 09/21/20 Blood Culture, Received Pending 09/21/20 Urine Culture, Received Pending 09/21/20 Respiratory Virus Panel (PCR) (RENE) - Final, Complete 09/21/20 Blood Culture, Received Pending Home Medications Scheduled Amiodarone HCl (Amiodarone HCl) 100 Mg Tablet, 200 MG PO 5XW FRIDAY, FRIDAY, FRIDAY, FRIDAY AND FRIDAY @ 0800 Brimonidine Tartrate (Alphagan P) 0.1% 5ML Drops, 1 DROP OS BID Cyanocobalamin (Vitamin B-12) (Vitamin B-12) 500 Mcg Tablet, 500 MCG PO DAILY Famotidine (Famotidine) 20 Mg Tablet, 20 MG PO QHS Ferrous Sulfate (Ferrous Sulfate) 325 Mg Tablet, 325 MG PO DAILY Hydroxychloroquine Sulfate (Hydroxychloroquine Sulfate) 200 Mg Tablet, 200 MG PO DAILY Isosorbide Mononitrate (Isosorbide Mononitrate ER) 120 Mg Tab.er.24h, 120 MG PO DAILY Metoprolol Tartrate (Metoprolol Tartrate) 25 Mg Tablet, 25 MG PO BID Pravastatin Sodium (Pravastatin Sodium) 40 Mg Tablet, 40 MG PO QHS Salmeterol/Fluticasone (Advair 250-50 Diskus) 1 Each Blst.w.dev, 1 PUFF INH BID Sitagliptin Phosphate (Januvia) 25 Mg Tablet, 25 MG PO DAILY Torsemide (Torsemide) 20 Mg Tablet, 20 MG PO DAILY Vit A/Vit C/Vit E/Zinc/Copper (Preservision Areds Softgel) 1 Cap Cap, 1 CAP PO BID Scheduled PRN Acetaminophen (Tylenol Extra Strength) 500 Mg Tablet, 500 MG PO Q4H PRN for PAIN Albuterol Sulfate (Proair Hfa) 8.5 Gm Hfa.aer.ad, 2 PUFF INH Q4H PRN for SHORTNESS OF BREATH Nitroglycerin (Nitrostat) 0.4 Mg Tab.subl, 0.4 MG SL NITRO PRN for CHEST PAIN Allergies Coded Allergies: Penicillins (Verified Adverse Reaction, Mild, LOCALIZED REACTION AT INJECTION SITE, 06/07/19) A-FIB/CHADSVASC A-FIB History Current/History of A-Fib/PAF?: Yes Current PO Anticoag Therapy: No (iv heparin) Attending Note Attending Note time of service 945pm Ms. Olvera is an 85 yr old F w a hx of unspecified CHF, DM2, a-fib, AGAPITO, GERD, HTN, RA and OA who is admitted for acute on chronic CHF. Plan: monitor Is Os daily weights / Lasix & f/u trops & Echo Rest per BISHOP Fields's H&P [place] [facility] Sep 21, 2020 23:11 SAKINA CAMPBELL MD Sep 22, 2020 07:14
[2020-09-22] VITALS (21 sets, daily range): BP systolic 109–168; BP diastolic 35–71; O2SAT 87–99
[2020-09-22] MEDS: PRAVASTATIN 20 MG TAB PO SCH ×2 (00:53→20:26)
[2020-09-22] MEDS: HEPARIN SOD (PORCINE) 5000UNITS/ML 1ML VIAL/SYRINGE SC SCH ×3 (00:53→20:25)
[2020-09-22] MEDS: METOPROLOL TART 25 MG TABLET PO SCH ×3 (00:53→20:28)
[2020-09-22] MEDS: DOCUSATE SODIUM 100MG CAPSULE PO SCH ×3 (00:53→20:25)
[2020-09-22] MEDS: BRIMONIDINE 0.1% OPHTH SOLN 5 ML OS SCH ×3 (00:55→20:28)
[2020-09-22] MEDS: OCUVITE 1 TAB PO SCH ×3 (00:55→20:28)
[2020-09-22] MEDS ORDERED: CEFEPIME HCL 1 GM in D5W MINI-BAG PLUS 50 ML IV ONE (01:20)
[2020-09-22] MEDS: ADVAIR HFA 230/21MCG INHALER INH SCH ×3 (03:00→20:00)
[2020-09-22] MEDS: FUROSEMIDE 40MG/4ML VIAL (J1940) IV SCH ×4 (03:28→21:35)
[2020-09-22 06:32] LABS: HEMATOCRIT 33.5 % (36.0-47.0); HEMOGLOBIN 10.2 g/dl (12.0-15.5); MEAN CORPUSCULAR HEMOGLOBIN 27.7 pg (27.0-33.0); MEAN CORPUSCULAR HGB CONC 30.4 g/dl (32.0-36.5); PLATELET COUNT, AUTOMATED 170 10^3/uL (150-450); RED BLOOD COUNT 3.68 10^6/uL (4.00-5.40)
[2020-09-22 06:51] LABS: HEMOGLOBIN A1c 6.8 %
[2020-09-22 06:56] LABS: CALCIUM LEVEL 8.4 MG/DL (8.8-10.2); CREATININE FOR GFR 2.22 MG/DL (0.55-1.30); GLOMERULAR FILTRATION RATE 22.2 (>32); MAGNESIUM LEVEL 2.3 MG/DL (1.8-2.4); POTASSIUM SERUM 3.4 MEQ/L (3.5-5.1); TROPONIN I 0.08 NG/ML (< 0.10)
--- NOTE | 2020-09-22 08:37 | REP ---
INDICATION: sob. COMPARISON: Yesterday TECHNIQUE: Portable FINDINGS: The technique utilized in obtaining the radiograph has magnified the cardiac silhouette and accentuated the interstitial markings. There is cardiomegaly status quo. The interstitial markings are again seen to be diffusely increased accentuated by technique status quo. No acute patchy parenchymal opacities or pleural effusions have developed. The osseous structures are stable. IMPRESSION: No significant change <Electronically signed by Dejuan Puentes > 09/22/20 0809
--- NOTE | 2020-09-22 08:43 | IPNPDOC ---
Date Seen The patient was seen on 09/22/20. Progress Note SUBJECTIVE: c/o thirst and dry mouth on lasix 40mgiv q4hrs. 1.9 liters out overnight. no cp, pressure,dizziness. sob better O: PE vitals: see below HEENT: dry mm +mild JVD no stridor CARDIOVASCULAR: S1S2 regular rate and rhythm. No murmurs, rubs, gallops. LUNGS: AEBE no wheezing bibasilar Crackles appreciated at b/l lung bases. No accessory muscle use.]. ABDOMEN: +Bs Soft, non-tender EXTREMITIES: 1+ edema b/l LE LABORATORY DATA: See below. IMAGING: CXR: There is cardiomegaly accentuated by technique. There is a diffuse increase in the interstitial markings throughout the lung underwood. There is a haziness throughout the pulmonary vascularity. No acute patchy parenchymal opacities or pleural effusions have developed. The left CP angle is not included on the radiograph. There is no significant change in appearance of the osseous structures. ASSESSMENT : 85 y/o female with a pmh of CHF, DM2, a-fib, AGAPITO, GERD, HTN, rheumatoid and osteoarthritis admitted for acute chf exacerb and UTI/sepsis. Acute Diastolic CHF exacerbation UTI chronic Afib CKD4 RA HTN GERD Plan: due to risk of worsening azotemia, nephrology consulted to help diurese. sob better. repeat CXR. iv abx for UTI, await sensitivity on urine cx and de-escalate. encourage early ambulation. dc once euvolemic 1-2 days. VS, I&O, 24H, Fishbone Vital Signs/I&O Vital Signs Date Time Temp Pulse Resp B/P (MAP) Pulse Ox O2 Delivery O2 Flow Rate FiO2 09/22/20 07:31 97.6 60 18 146/67 (93) 99 Nasal Cannula 3.0 I&O- Last 24 Hours up to 6 AM 09/22/20 06:00 Intake Total 50 ml Output Total 400 ml Balance -350 ml Laboratory Data 24H LABS Laboratory Tests 2 09/21/20 18:46: Immature Granulocyte % (Auto) 0.6, Neutrophils (%) (Auto) 91.0H, Lymphocytes (%) (Auto) 2.7L, Monocytes (%) (Auto) 5.3, Eosinophils (%) (Auto) 0.1, Basophils (%) (Auto) 0.3, Neutrophils # (Auto) 16.4H, Lymphocytes # (Auto) 0.5L, Monocytes # (Auto) 1.0H, Eosinophils # (Auto) 0.0, Basophils # (Auto) 0.1, Nucleated Red Blood Cells % (auto) 0.0, Urine Color YELLOW, Urine Appearance CLEAR, Urine pH 5.0, Urine Specific [place] 1.009, Urine Protein 3+H, Urine Glucose (UA) NEGATIVE, Urine Ketones NEGATIVE, Urine Blood 1+H, Urine Nitrite NEGATIVE, Urine Bilirubin NEGATIVE, Urine Urobilinogen 0.2, Urine Leukocyte Esterase 2+H, Urine WBC (Auto) 69H, Urine RBC (Auto) 7H, Urine Hyaline Casts (Auto) 0, Urine Bacteria (Auto) 1+H, Urine Squamous Epithelial Cells 1, Urine Mucus (Auto) SMALL, Urine Sperm (Auto) , Anion Gap 8, Glomerular Filtration Rate 24.4L, Lactic Acid Level 1.6, Calcium Level 9.0, Total Bilirubin 0.5, Direct Bilirubin 0.1, Aspartate Amino Transf (AST/SGOT) 30, Alanine Aminotransferase (ALT/SGPT) 19, Alkaline Phosphatase 101, Total Creatine Kinase 188, Creatine Kinase MB < 1.0, Creatine Kinase MB Relative Index 0.53, Troponin I 0.02, PL-Pjy-A-Type Natriuretic Peptide 2685H, Total Protein 7.7, Albumin 4.2, Albumin/Globulin Ratio 1.2, Thyroid Stimulating Hormone (TSH) 1.180 09/22/20 02:34: Troponin I 0.10# 09/22/20 06:20: Nucleated Red Blood Cells % (auto) 0.0, Anion Gap 8, Glomerular Filtration Rate 22.2L, Calcium Level 8.4L, Troponin I 0.08, JJ-Pse-E-Type Natriuretic Peptide 5996H, Estimated Mean Plasma Glucose 148H, Hemoglobin A1c 6.8, Magnesium Level 2.3 CBC/BMP Laboratory Tests 09/21/20 18:46 09/22/20 06:20 Microbiology Microbiology 09/21/20 Blood Culture, Received Pending 09/21/20 Urine Culture, Received Pending 09/21/20 Respiratory Virus Panel (PCR) (RENE) - Final, Complete 09/21/20 Blood Culture, Received Pending SALINA LEACH MD Sep 22, 2020 08:16
[2020-09-22] MEDS: FERROUS SULFATE 325MG TAB PO SCH (08:48)
[2020-09-22] MEDS: HumaLOG INSULIN (NovoLOG) PER UNIT SC SCH ×4 (08:48→20:16)
[2020-09-22] MEDS: CYANOCOBALAMIN 500 MCG TAB PO SCH (08:49)
[2020-09-22] MEDS: ISOSORBIDE MON. (IMDUR) 60 MG XR TAB PO SCH (08:49)
[2020-09-22] MEDS ORDERED: AMIODARONE 100MG TABLET (PACERONE) PO SCH (09:00)
[2020-09-22] MEDS ORDERED: AMIODARONE 200 MG TAB (PACERONE) PO SCH (09:00)
[2020-09-22] MEDS ORDERED: TORSEMIDE 20 MG TAB PO SCH (09:00)
[2020-09-22] MEDS ORDERED: SALIVA SUBSTITUTE(MOUTHKOTE) BTL MT ONE (10:00)
[2020-09-22] MEDS: HYDROXYCHLOROQUINE 200 MG TAB PO SCH (12:12)
[2020-09-22 18:44] LABS: CALCIUM LEVEL 9.5 MG/DL (8.8-10.2); CREATININE FOR GFR 2.34 MG/DL (0.55-1.30); GLOMERULAR FILTRATION RATE 20.9 (>32); POTASSIUM SERUM 3.5 MEQ/L (3.5-5.1); TROPONIN I 0.03 NG/ML (< 0.10)
--- NOTE | 2020-09-22 19:48 | ECGEPIP ---
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
[2020-09-22] MEDS: POTASSIUM CHLORIDE 10 MEQ SR TABLET PO SCH (20:26)
[2020-09-23] VITALS (27 sets, daily range): BP systolic 132–146; BP diastolic 55–65; O2SAT 90–97
[2020-09-23] MEDS: ADVAIR HFA 230/21MCG INHALER INH SCH ×2 (07:32→19:40)
[2020-09-23] MEDS ORDERED: AMIODARONE 150MG/3ML INJ (J0282) IVP STA (07:33)
[2020-09-23] MEDS ORDERED: CEPACOL LOZENGE PO PRN (07:35)
[2020-09-23] MEDS ORDERED: FUROSEMIDE 40MG/4ML VIAL (J1940) IV ONE (07:45)
--- NOTE | 2020-09-23 07:45 | IPNPDOC ---
Date Seen The patient was seen on 09/23/20. Progress Note SUBJECTIVE: Tele: afib w rvr 89 denies dizziness, lightheadedness, palpitations when walked to chair from bed. c/o cough worse today scant sputum w/o f/c c/o sore throat hoarse voice O: PE vitals: see below I/O/weights: reviewed HEENT: dry mm +mild JVD no stridor CARDIOVASCULAR: S1S2 irregularly irregular rate and rhythm. No murmurs, rubs, gallops.tachycardic LUNGS: AEBE no wheezing bibasilar Crackles appreciated at b/l lung bases. No accessory muscle use. ABDOMEN: +Bs Soft, non-tender EXTREMITIES: 1+ edema b/l LE LABORATORY DATA: See below. IMAGING: CXR: There is cardiomegaly accentuated by technique. There is a diffuse increase in the interstitial markings throughout the lung underwood. There is a haziness throughout the pulmonary vascularity. No acute patchy parenchymal opacities or pleural effusions have developed. The left CP angle is not included on the radiograph. There is no significant change in appearance of the osseous structures. ASSESSMENT : 85 y/o female with a pmh of CHF, DM2, a-fib, AGAPITO, GERD, HTN, rheumatoid and osteoarthritis admitted for acute chf exacerb and UTI/sepsis. Acute Diastolic CHF exacerbation UTI chronic Afib with RVR CKD4 RA HTN GERD hoarse voice Plan: iv amio x 1, continue 5x/wk amio 200mg daily. extra dose of metoprolol 25mg and continue bid dosing with holding parameters. diuresis per nephrology. cepacol prn abx for uti. monitor renal function strict i/o weigh daily. continue all other home meds. recheck cxr portable. VS, I&O, 24H, Fishbone Vital Signs/I&O Vital Signs Date Time Temp Pulse Resp B/P (MAP) Pulse Ox O2 Delivery O2 Flow Rate FiO2 09/23/20 07:12 98.5 75 18 138/65 (89) 93 Room Air 09/22/20 09:00 2.0 I&O- Last 24 Hours up to 6 AM 09/23/20 06:00 Intake Total 1140 ml Output Total 2850 ml Balance -1710 ml Laboratory Data 24H LABS Laboratory Tests 2 09/22/20 11:59: Bedside Glucose (Misc Panel) 134H 09/22/20 12:05: Troponin I 0.05# 09/22/20 16:33: Bedside Glucose (Misc Panel) 138H 09/22/20 17:59: Troponin I 0.03#, Anion Gap 10, Glomerular Filtration Rate 20.9L, Calcium Level 9.5 09/22/20 19:58: Bedside Glucose (Misc Panel) 170H 09/23/20 00:23: Troponin I 0.03 CBC/BMP Laboratory Tests 09/22/20 17:59 Microbiology Microbiology 09/21/20 Blood Culture - Preliminary, Resulted No growth after 24 hours . All specim... 09/21/20 Urine Culture - Final, Complete 09/21/20 Respiratory Virus Panel (PCR) ([facility]) - Final, Complete 09/21/20 Blood Culture - Preliminary, Resulted No growth after 24 hours . All specim... SALINA LEACH MD Sep 23, 2020 07:45
[2020-09-23] MEDS: FUROSEMIDE 40MG/4ML VIAL (J1940) IV SCH (07:46)
[2020-09-23] MEDS: HumaLOG INSULIN (NovoLOG) PER UNIT SC SCH ×4 (07:47→20:20)
[2020-09-23 07:56] LABS: HEMATOCRIT 33.9 % (36.0-47.0); HEMOGLOBIN 10.6 g/dl (12.0-15.5); MEAN CORPUSCULAR HEMOGLOBIN 27.7 pg (27.0-33.0); MEAN CORPUSCULAR HGB CONC 31.3 g/dl (32.0-36.5); MEAN CORPUSCULAR VOLUME 88.5 fl (80.0-96.0); PLATELET COUNT, AUTOMATED 204 10^3/uL (150-450); RED BLOOD COUNT 3.83 10^6/uL (4.00-5.40); WHITE BLOOD COUNT 9.5 10^3/uL (4.0-10.0)
[2020-09-23] MEDS ORDERED: AMIODARONE HCL 150 MG in IV 1 EA IV ONE (08:00)
[2020-09-23] MEDS ORDERED: CEPACOL LOZENGE PO ONE (08:00)
[2020-09-23] MEDS ORDERED: METOPROLOL TART 25 MG TABLET PO ONE (08:00)
[2020-09-23 08:25] LABS: CALCIUM LEVEL 8.6 MG/DL (8.8-10.2); CREATININE FOR GFR 2.27 MG/DL (0.55-1.30); GLOMERULAR FILTRATION RATE 21.7 (>32); MAGNESIUM LEVEL 2.2 MG/DL (1.8-2.4); POTASSIUM SERUM 3.7 MEQ/L (3.5-5.1); TROPONIN I 0.02 NG/ML (< 0.10)
--- NOTE | 2020-09-23 08:32 | REP ---
INDICATION: cough. COMPARISON: Comparison chest x-ray September 22, 2020. TECHNIQUE: Portable upright AP chest radiograph. FINDINGS: EKG monitoring electrodes are seen. Mild cardiomegaly is observed. Pulmonary vasculature is cephalized. No acute infiltrate is seen. There is no evidence of pleural effusion. . IMPRESSION: Prominent heart and pulmonary vascular cephalization. No acute infiltrate.. <Electronically signed by Dashawn Helton > 09/23/20 0828
[2020-09-23] MEDS ORDERED: guaiFENesin DM LIQ 10ML UD PO ONE (09:00)
[2020-09-23] MEDS ORDERED: FAMOTIDINE 20 MG TAB PO SCH (09:00)
[2020-09-23] MEDS: HYDROXYCHLOROQUINE 200 MG TAB PO SCH (09:28)
[2020-09-23] MEDS: POTASSIUM CHLORIDE 10 MEQ SR TABLET PO SCH ×2 (09:28→20:32)
[2020-09-23] MEDS: FERROUS SULFATE 325MG TAB PO SCH (09:29)
[2020-09-23] MEDS: APIXABAN 2.5 MG TAB (ELIQUIS) PO SCH ×2 (09:29→20:34)
[2020-09-23] MEDS: ISOSORBIDE MON. (IMDUR) 60 MG XR TAB PO SCH (09:29)
[2020-09-23] MEDS: CYANOCOBALAMIN 500 MCG TAB PO SCH (09:29)
[2020-09-23] MEDS: DOCUSATE SODIUM 100MG CAPSULE PO SCH ×2 (09:29→20:35)
[2020-09-23] MEDS: METOPROLOL TART 25 MG TABLET PO SCH ×2 (09:30→20:32)
[2020-09-23] MEDS: OCUVITE 1 TAB PO SCH ×2 (09:30→20:33)
[2020-09-23] MEDS: BRIMONIDINE 0.1% OPHTH SOLN 5 ML OS SCH ×2 (09:30→20:37)
[2020-09-23] MEDS ORDERED: guaiFENesin DM LIQ 10ML UD PO PRN (12:00)
--- NOTE | 2020-09-23 14:59 | IPN ---
PROGRESS NOTE DATE: 09/23/2020 SUBJECTIVE: Ms. Olvera is seen this morning on her bedside. She is sitting in the chair at the time of my visit. She is feeling much better and her dyspnea has improved. She is not requiring oxygen anymore. She was admitted with acute decompensated congestive heart failure and has been diuresed with intravenous Lasix. Patient denies any dyspnea at present. MEDICATIONS: Medications are reviewed and it is noted that she is now receiving intravenous Lasix 40 mg every 12 hours while yesterday she was receiving 40 mg every 6 hours. Other medications are all unchanged. She has been given Amiodarone for rapid atrial fibrillation and her heart rate seems better controlled. PHYSICAL EXAMINATION: VITALS: Temperature 97.8 degrees Fahrenheit, heart rate 64 per minute, respiratory rate 18 per minute, blood pressure 132/60 mmHg and oxygen saturation 97% on room air. INTAKE AND OUTPUT: Records show a negative fluid balance of 2,100 mL over the last 24 hours. Her weight is down to 81.9 kilograms today. HEENT: Head is atraumatic. Neck is supple and JVD not abnormally elevated. LUNGS: Sound clear to auscultation bilaterally. HEART: Sounds are irregular in rhythm, but rate is well controlled. ABDOMEN: Soft and nontender. Bowel sounds are normal. EXTREMITIES: Without any cyanosis or clubbing. She does not have any significant peripheral edema at present. NEUROLOGIC: She is awake, alert and oriented x3. LABORATORY STUDIES: Today's labs show WBC 9.5, hemoglobin 10.6, hematocrit 33.9. Sodium 141, potassium 3.7, CO2 27, BUN 61 and creatinine 2.27. BNP level is down to 3,701 while yesterday it was almost 6,000. PROBLEMS: 1. Acute on chronic congestive heart failure: Volume status has improved and she clinically seems euvolemic now. I am going to stop her I.V. Lasix. She has already diuresed 1 unit today. We will resume her chronic diuretic with Torsemide 20 mg daily from tomorrow. 2. Atrial fibrillation with rapid ventricular rate: She has received beta-heena and Amiodarone, and ventricular rate is now much better controlled. 3. Acute kidney injury superimposed on chronic kidney disease: Most likely related to decompensated congestive heart failure and kidney function has also improved compared to yesterday. She has good urine output and no metabolic acidosis or hyperkalemia. 4. Anemia: Her anemia is mild and stable, and does not need any urgent intervention.
[2020-09-23] MEDS: PRAVASTATIN 20 MG TAB PO SCH (20:33)
--- NOTE | 2020-09-23 23:05 | ECGEPIP ---
[facility] Test Date: 2020-09-23 Pat Name: BIPIN YUSUF Department: Room: [place] [address] Gender: Female L Tacker: KAYLEIGH : 1935 Requested By: GATITO MONDRAGON D.O. Order Number: [id number] Reading MD: Ayaz Guerrero Measurements Intervals [place] Rate: 74 P: 71 CT: 186 QRS: 66 QRSD: 156 T: 44 QT: 460 QTc: 510 Interpretive Statements Normal sinus rhythm Right bundle branch block Compared to prior tracings (3) in the system, Atrial Fib was noted in the past Electronically Signed on 09-23-2020 23:05:27 EDT by Ayaz Guerrero
[2020-09-24] VITALS (9 sets, daily range): BP systolic 150–162; BP diastolic 68–70; O2SAT 91–94
[2020-09-24 05:31] LABS: HEMATOCRIT 32.1 % (36.0-47.0); MEAN CORPUSCULAR HGB CONC 31.2 g/dl (32.0-36.5); MEAN CORPUSCULAR VOLUME 89.9 fl (80.0-96.0); PLATELET COUNT, AUTOMATED 208 10^3/uL (150-450); RED BLOOD COUNT 3.57 10^6/uL (4.00-5.40); WHITE BLOOD COUNT 7.8 10^3/uL (4.0-10.0)
[2020-09-24 06:13] LABS: CALCIUM LEVEL 8.5 MG/DL (8.8-10.2); CREATININE FOR GFR 2.49 MG/DL (0.55-1.30); GLOMERULAR FILTRATION RATE 19.5 (>32); MAGNESIUM LEVEL 2.3 MG/DL (1.8-2.4)
[2020-09-24] MEDS: ADVAIR HFA 230/21MCG INHALER INH SCH (07:46)
[2020-09-24] MEDS: HumaLOG INSULIN (NovoLOG) PER UNIT SC SCH ×2 (08:19→12:07)
[2020-09-24] MEDS: ISOSORBIDE MON. (IMDUR) 60 MG XR TAB PO SCH (08:20)
[2020-09-24] MEDS: OCUVITE 1 TAB PO SCH (08:20)
[2020-09-24] MEDS: BRIMONIDINE 0.1% OPHTH SOLN 5 ML OS SCH (08:20)
[2020-09-24] MEDS: HYDROXYCHLOROQUINE 200 MG TAB PO SCH (08:20)
[2020-09-24] MEDS: POTASSIUM CHLORIDE 10 MEQ SR TABLET PO SCH (08:20)
[2020-09-24] MEDS: FERROUS SULFATE 325MG TAB PO SCH (08:21)
[2020-09-24] MEDS: CYANOCOBALAMIN 500 MCG TAB PO SCH (08:21)
[2020-09-24] MEDS: METOPROLOL TART 25 MG TABLET PO SCH (08:21)
[2020-09-24] MEDS: DOCUSATE SODIUM 100MG CAPSULE PO SCH (08:21)
[2020-09-24] MEDS: APIXABAN 2.5 MG TAB (ELIQUIS) PO SCH (08:21)
[2020-09-24] MEDS ORDERED: TORSEMIDE 20 MG TAB PO SCH (09:00)
--- NOTE | 2020-09-24 09:04 | DS.PDOC ---
Discharge Summary General Date of Admission Sep 22, 2020 at 09:30 Date of Discharge 09/24/20 Discharge Summary [facility] RELATIONS ADVISER; NEPHROLOGY-DR SALINAS DISCHARGE DIAGNOSES: Acute Diastolic CHF exacerbation UTI chronic Afib with RVR CKD4 RA HTN GERD hoarse voice DISCHARGE MEDICATIONS:SEE BELOW DISCHARGE INSTRUCTIONS: FU W PCP BRAD KRUEGER 1 WK 2L FLUID RESTRICTION CALL DR SALINAS IF >2LB WEIGHT GAIN DAILY WEIGHTS RENAL 2 G SODIUM DIET HOSPITAL COURSE: 85 y/o F admitted for sob found to have acute diastolic chf, with ckd4, afib w rvr treated with additional dose of iv amiodarone and iv metoprolol, treated for UTI present on admission, given iv lasix 40mg q4hrs with admission weight of 85.2 kg and discharge weight of 81.1 kg. HR improved from 130-140 to 60-90 bpm and pt was resumed on home meds. DISCHARGE PE vitals: see below I/O/weights: reviewed HEENT: dry mm +mild JVD no stridor CARDIOVASCULAR: S1S2 irregularly irregular rate and rhythm. No murmurs, rubs, gallops.tachycardic LUNGS: AEBE no wheezing bibasilar Crackles appreciated at b/l lung bases. No accessory muscle use. ABDOMEN: +Bs Soft, non-tender EXTREMITIES: 1+ edema b/l LE LABORATORY DATA/MICROBIOLOGY: See below. IMAGING: CXR: There is cardiomegaly accentuated by technique. There is a diffuse increase in the interstitial markings throughout the lung underwood. There is a haziness throughout the pulmonary vascularity. No acute patchy parenchymal opacities or pleural effusions have developed. The left CP angle is not included on the radiograph. There is no significant change in appearance of the osseous structures. TIME SPENT ON DISCHARGE: 30 MIN Vital Signs/I&Os Vital Signs Date Time Temp Pulse Resp B/P (MAP) Pulse Ox O2 Delivery O2 Flow Rate FiO2 09/24/20 08:21 74 162/68 09/24/20 07:22 98.0 18 96 Room Air 09/22/20 09:00 2.0 I&O- Last 24 Hours up to 6 AM 09/24/20 06:00 Intake Total 2040 ml Output Total 500 ml Balance 1540 ml Laboratory Data Labs 24H Laboratory Tests 2 09/23/20 11:53: Bedside Glucose (Misc Panel) 217H 09/23/20 12:04: Troponin I 0.02 09/23/20 16:29: Bedside Glucose (Misc Panel) 118H 09/23/20 18:01: Troponin I 0.02 09/23/20 19:45: Bedside Glucose (Misc Panel) 145H 09/24/20 04:43: Nucleated Red Blood Cells % (auto) 0.0, Anion Gap 9, Glomerular Filtration Rate 19.5L, Calcium Level 8.5L, Magnesium Level 2.3, XE-Qpo-F-Type Natriuretic Peptide 3412H CBC/BMP Laboratory Tests 09/24/20 04:43 FSBS Laboratory Tests Test 09/23/20 11:53 09/23/20 16:29 09/23/20 19:45 Range/Units Bedside Glucose (Misc Panel) 217 118 145 83-110 MG/DL Microbiology Microbiology 09/21/20 Blood Culture - Preliminary, Resulted No Growth after 48 hours. All Specime... 09/21/20 Urine Culture - Final, Complete 09/21/20 Respiratory Virus Panel (PCR) ([facility]) - Final, Complete 09/21/20 Blood Culture - Preliminary, Resulted No Growth after 48 hours. All Specime... Discharge Medications Scheduled Amiodarone HCl (Amiodarone HCl) 100 Mg Tablet, 200 MG PO 5XW, (Reported) FRIDAY, FRIDAY, FRIDAY, FRIDAY AND FRIDAY @ 0800 Brimonidine Tartrate (Alphagan P) 0.1% 5ML Drops, 1 DROP OS BID, (Reported) Cyanocobalamin (Vitamin B-12) (Vitamin B-12) 500 Mcg Tablet, 500 MCG PO DAILY, (Reported) Famotidine (Famotidine) 20 Mg Tablet, 20 MG PO QHS, (Reported) Ferrous Sulfate (Ferrous Sulfate) 325 Mg Tablet, 325 MG PO DAILY, (Reported) Hydroxychloroquine Sulfate (Hydroxychloroquine Sulfate) 200 Mg Tablet, 200 MG PO DAILY, (Reported) Isosorbide Mononitrate (Isosorbide Mononitrate ER) 120 Mg Tab.er.24h, 120 MG PO DAILY, (Reported) Metoprolol Tartrate (Metoprolol Tartrate) 25 Mg Tablet, 25 MG PO BID, (Reported) Pravastatin Sodium (Pravastatin Sodium) 40 Mg Tablet, 40 MG PO QHS, (Reported) Salmeterol/Fluticasone (Advair 250-50 Diskus) 1 Each Blst.w.dev, 1 PUFF INH BID, (Reported) Sitagliptin Phosphate (Januvia) 25 Mg Tablet, 25 MG PO DAILY, (Reported) Torsemide (Torsemide) 20 Mg Tablet, 20 MG PO DAILY, (Reported) Vit A/Vit C/Vit E/Zinc/Copper (Preservision Areds Softgel) 1 Cap Cap, 1 CAP PO BID, (Reported) Scheduled PRN Acetaminophen (Tylenol Extra Strength) 500 Mg Tablet, 500 MG PO Q4H PRN for PAIN, (Reported) Albuterol Sulfate (Proair Hfa) 8.5 Gm Hfa.aer.ad, 2 PUFF INH Q4H PRN for SHORTNESS OF BREATH, (Reported) Nitroglycerin (Nitrostat) 0.4 Mg Tab.subl, 0.4 MG SL NITRO PRN for CHEST PAIN, (Reported) Allergies Coded Allergies: Penicillins (Verified Adverse Reaction, Mild, LOCALIZED REACTION AT INJECTION SITE, 06/07/19) SALINA LEACH MD Sep 24, 2020 09:04
--- NOTE | 2020-09-24 10:54 | IPN ---
PROGRESS NOTE DATE: 09/24/2020 SUBJECTIVE: Mrs. Olvera is seen this morning on her bedside. She is feeling better now and reports sleeping well with the CPAP machine at night. She denies any nausea or vomiting. PHYSICAL EXAMINATION: VITALS: Temperature 98 degrees Fahrenheit, heart rate 62 per minute, respiratory rate 18 per minute, blood pressure 162/68 mmHg and oxygen saturation 96% on room air. HEENT: Head is atraumatic. Neck is supple and JVD not abnormally elevated. HEART: Sounds are irregular in rhythm, and there is no pericardial friction rub. ABDOMEN: Soft, nontender, without palpable organomegaly. Bowel sounds are normal. EXTREMITIES: Without any cyanosis or clubbing. LABORATORY STUDIES: Today's labs show WBC 7.8, hemoglobin 10.0, hematocrit 32, platelets 208,000. Sodium 141, potassium 5.0, CO2 24, BUN 70, creatinine 2.49, glucose 120 and calcium 8.5. BNP level is down to 3,412. PROBLEMS: 1. Acute on chronic congestive heart failure: Volume status seems clinically improved significantly. She is not short of breath anymore and no peripheral edema noted. Her BNP level has improved. She is now back on her home diuretic this morning and will follow-up as an outpatient in the clinic. 2. Acute on chronic kidney disease: Kidney function slightly worse, related to diuretics. No uremic symptoms noticed. At this point, there is no emergent indication for dialysis. It is likely that she might reach a point where she will need to consider dialysis in the future. 3. Anemia: Her anemia is stable and she has not been transfused during this hospitalization. DISPOSITION: From a renal standpoint, patient can be discharged to home today and follow-up in the clinic in 1-2 weeks.
--- NOTE | 2020-09-25 08:49 | ECHO ---
DATE OF PROCEDURE: 09/22/2020 Age: 85 Gender: Female REFERRING PHYSICIAN: Reanna Quan MD PATIENT LOCATION: Room 3214 REASON FOR THE STUDY: Congestive heart failure. MEASUREMENTS: 2D measurements: IVS 1.4 cm LV 4.7 cm LVPW 1.4 cm LA 3.7 cm Aorta 2.9 cm IVC 1.9 cm DOPPLER MEASUREMENTS: Peak velocity across the aorta 2.3 m/s Peak velocity across the LVOT 1.0 m/s Peak gradient across the aortic valve 22 mmHg. Mean gradient across the aortic valve 11. MmHg Mitral E 1.3, mitral A 1.3 with a ratio of 1.0. Maximum tricuspid valve velocity is 2.9 m/s 2D COMMENTS: 1. Normal left ventricular size with mildly increased left ventricular wall thickness. Left ventricular systolic function is normal, estimated at 60 to 65%. 2. Subjectively, the left atrium appeared to be mildly enlarged. Normal right atrium and right ventricle. 3. The atrial septum appears to be normal without evidence of defect or shunt. 4. Normal aortic root. 5. No pericardial effusion seen. 6. Mildly calcified aortic valve with mildly decreased leaflet excursion. Mildly calcified mitral annulus with normal anterior mitral valve leaflet motion. Normal tricuspid valve and pulmonic valve. The proximal pulmonary artery branches were not well visualized. 7. The inferior vena cava is mildly enlarged. Central venous pressure might be elevated. DOPPLER: It detects moderate mitral regurgitation, mild tricuspid regurgitation. The calculated pulmonary artery systolic pressure values between 40 to 50 mmHg. There may be features of grade I left ventricular diastolic dysfunction. IMPRESSION: 1. Normal global left ventricular systolic function with mild concentric left ventricular hypertrophy and probably grade 1 left ventricular diastolic dysfunction. 2. Aortic valve sclerosis with mild aortic stenosis, but no aortic regurgitation. 3. Mitral annulus calcification with moderate mitral regurgitation. 4. Mild tricuspid regurgitation with probably moderate pulmonary hypertension. 5. There are some features of elevated central venous pressure, the inferior vena cava was mildly enlarged. 6. Global longitudinal strain was normal, calculated at -20.5%. MTDD
== END 2020-09-24 14:02 | disposition home health service (06) | DRG 291 ==
LOC: EDBD 18:04 → M ED 18:04 → M ED INP 22:04 → INTOOBSV 22:04 → ENRESERV 23:41 → M PCU 09-22 00:39 → OBSVTOIN 09-22 09:30
PROVIDERS: ADMIT Internal Medicine; ATTEND General Practice
DX: I13.0 Hypertensive heart and chronic kidney disease with heart failure and stage 1 through stage 4 chronic kidney disease, or unspecified chronic kidney disease (principal); I50.33 Acute on chronic diastolic (congestive) heart failure; N18.4 Chronic kidney disease, stage 4 (severe); N39.0 Urinary tract infection, site not specified; I48.20 Chronic atrial fibrillation, unspecified; N17.9 Acute kidney failure, unspecified; E11.22 Type 2 diabetes mellitus with diabetic chronic kidney disease; G47.33 Obstructive sleep apnea (adult) (pediatric); H91.93 Unspecified hearing loss, bilateral; K21.9 Gastro-esophageal reflux disease without esophagitis; M06.9 Rheumatoid arthritis, unspecified; E78.5 Hyperlipidemia, unspecified; R49.0 Dysphonia; Z96.653 Presence of artificial knee joint, bilateral; Z96.643 Presence of artificial hip joint, bilateral; Z90.49 Acquired absence of other specified parts of digestive tract; Z98.49 Cataract extraction status, unspecified eye; Z97.4 Presence of external hearing-aid; Z79.899 Other long term (current) drug therapy; Z88.0 Allergy status to penicillin

== ENCOUNTER → 2020-09-28 | Outpatient (REF) | payer MEDICARE ==
[~2020-09-28] MED LIST changes: +ACET-897 PO; +ADV250INH INH; +AMIO100T3 PO; +BRIM1OPD OS; +CYAN500T3 PO; +FAMO20TA PO; +FERR325T18 PO; +HYDR200T3 PO; +ISOS120T7 PO; +JANU25TA PO; +METO1TAB87 PO; +NITR4TASL SL; +PROAAER10 INH; +TORS20TA2 PO
== END ==
LOC: M LAB REF 16:24
PROVIDERS: ATTEND Nurse Practitioner Adult Health
DX: M10.9 Gout, unspecified (principal)

== ENCOUNTER → 2021-01-08 | Outpatient (REF) | payer MEDICARE | LOC: M LAB REF 13:02 | PROVIDERS: ATTEND Internal Medicine Nephrology | DX: E83.42 Hypomagnesemia (principal) ==

== ENCOUNTER → 2021-04-02 | Outpatient (REF) | payer MEDICARE ==
[2021-04-02 18:53] LABS: C REACTIVE PROTEIN QUANTITATIV < 0.30 MG/DL (0.00-0.30); URIC ACID 6.7 MG/DL (2.6-6.0)
[2021-04-02 20:11] LABS: BASOPHILS 3 % (0-1); EOSINOPHILS 1 % (0-3); LYMPHOCYTES 10 % (16-44); MONOCYTES 12 % (0-5); NEUTROPHILS 74 % (28-66)
[2021-04-02 20:12] LABS: ANISOCYTOSIS 1+; OVALOCYTES 1+; PLATELET ESTIMATE NORMAL (NORMAL); POLYCHROMASIA 1+
== END ==
LOC: M LAB REF 16:50
PROVIDERS: ATTEND Nurse Practitioner Adult Health
DX: D72.89 Other specified disorders of white blood cells (principal)

== ENCOUNTER → 2021-06-15 | Outpatient (REF) | payer MEDICARE ==
[2021-06-15 22:00] LABS: ATYPICAL LYMPH 9 % (0-5); EOSINOPHILS 6 % (0-3); LYMPHOCYTES 6 % (16-44); MONOCYTES 2 % (0-5); NEUTROPHILS 77 % (28-66)
[2021-06-15 22:01] LABS: PLATELET ESTIMATE NORMAL (NORMAL)
[2021-06-15 22:05] LABS: ANISOCYTOSIS 1+
== END ==
LOC: M LAB REF 16:42
PROVIDERS: ATTEND Nurse Practitioner Adult Health
DX: D72.9 Disorder of white blood cells, unspecified (principal)

== ENCOUNTER → 2021-06-27 | Outpatient (CLI) | payer MEDICARE | LOC: M RAD 16:47 | PROVIDERS: ATTEND Internal Medicine | DX: M05.79 Rheumatoid arthritis with rheumatoid factor of multiple sites without organ or systems involvement (principal) ==

== ENCOUNTER → 2021-08-01 | Outpatient (REF) | payer MEDICARE | LOC: M LAB REF 16:51 | PROVIDERS: ATTEND Internal Medicine Nephrology | DX: E83.42 Hypomagnesemia (principal) ==

== ENCOUNTER 2021-11-19 21:36 | Emergency (ER) | payer MEDICARE ==
[~2021-11-19] VITALS: Ht 152.4 cm; Wt 85.0 kg
[2021-11-20] MEDS ORDERED: methocarbamoL 750 MG TAB PO ONE (03:00)
[2021-11-20] MEDS ORDERED: predniSONE 20 MG TAB PO ONE (03:00)
[2021-11-20] MEDS ORDERED: METOPROLOL TART 25 MG TABLET PO ONE (03:05)
[2021-11-20] MEDS ORDERED: PRED20TA PO (05:56)
[2021-11-20] MEDS ORDERED: METH-1165 PO (05:56)
[2021-11-20] MEDS ORDERED: amLODIPine 5 MG TAB PO ONE (06:15)
[2021-11-20 07:22] VITALS: BP 156/92
== END 2021-11-20 07:30 | disposition home or self-care (01) ==
LOC: M ED 21:36
DX: I10 Essential (primary) hypertension (principal); M54.50 Low back pain, unspecified; I25.10 Atherosclerotic heart disease of native coronary artery without angina pectoris; E11.9 Type 2 diabetes mellitus without complications; M06.9 Rheumatoid arthritis, unspecified; M48.061 Spinal stenosis, lumbar region without neurogenic claudication; Z79.899 Other long term (current) drug therapy; Z88.0 Allergy status to penicillin
CPT/HCPCS: 72131; 99284; J7512

== ENCOUNTER 2021-11-26 19:47 | Observation (INO) | payer MEDICARE ==
[~2021-11-26] VITALS: Ht 152.4 cm; Wt 82.2 kg
[~2021-11-26 19:47] MED LIST changes: +METH-1165 PO; +PRED20TA PO
[2021-11-26] MEDS ORDERED: NS 1,000 ML IV ONE (20:25)
[2021-11-26 20:41] LABS: VENOUS BASE EXCESS -4.2 (-2.0-2.0); VENOUS HCO3 21.9 MEQ/L (23.0-27.0); VENOUS O2 SATURATION 84.2 % (60.0-80.0); VENOUS PARTIAL PRESSURE CO2 44.2 mmHg (38.0-50.0); VENOUS PH 7.313 UNITS (7.330-7.430); VENOUS STANDARD HCO3 20.7 MEQ/L; VENOUS TOTAL CO2 23.3 MEQ/L (24.0-28.0)
[2021-11-26 20:48] LABS: BASO % 0.1 % (0.0-1.0); HEMATOCRIT 36.2 % (36.0-47.0); HEMOGLOBIN 11.5 g/dl (12.0-15.5); LYMPH # 0.5 10^3/uL (1.5-5.0); LYMPH % 6.8 % (24.0-44.0); MEAN CORPUSCULAR HEMOGLOBIN 30.3 pg (27.0-33.0); MEAN CORPUSCULAR HGB CONC 31.8 g/dl (32.0-36.5); MEAN CORPUSCULAR VOLUME 95.3 fl (80.0-96.0); MONO # 0.6 10^3/uL (0.0-0.8); MONO % 7.3 % (2.0-8.0); NEUTROPHILS # 6.7 10^3/uL (1.5-8.5); NEUTROPHILS % 84.7 % (36.0-66.0); PLATELET COUNT, AUTOMATED 235 10^3/uL (150-450); WHITE BLOOD COUNT 7.9 10^3/uL (4.0-10.0)
[2021-11-26 21:01] LABS: INR 1.01; PROTHROMBIN TIME 13.7 SECONDS (12.7-14.5)
[2021-11-26 21:17] LABS: CK-MB VALUE MASS 2.2 NG/ML (<3.6); MB/CK RELATIVE INDEX 2.12 (< OR =4)
[2021-11-26 21:26] LABS: ACETONE/KETONE 1.78 MG/DL (<2.81); CALCIUM LEVEL 8.4 MG/DL (8.8-10.2); CREATININE FOR GFR 2.23 MG/DL (0.55-1.30); GLOMERULAR FILTRATION RATE 22.1 (>32); POTASSIUM SERUM 4.2 MEQ/L (3.5-5.1)
[2021-11-26] MEDS ORDERED: HumuLIN R (REGULAR) INSULIN (NovoLIN R) **100U/ML** PER UNIT IV STA (21:37)
[2021-11-26] MEDS ORDERED: amLODIPine 5 MG TAB PO ONE (21:40)
[2021-11-26] MEDS ORDERED: ALLO100T PO (23:00)
[2021-11-26] MEDS ORDERED: METH-1165 PO (23:00)
[2021-11-26] MEDS ORDERED: HOME MED LIST COMPLETE! XX SCH (23:05)
[2021-11-26] MEDS ORDERED: MOM 30ML SUSPENSION UDC PO PRN (23:15)
[2021-11-26] MEDS ORDERED: ACETAMINOPHEN TAB 650MG DOSE (2X325MG) PO PRN (23:15)
[2021-11-26] MEDS ORDERED: MAALOX 30 ML SUSP *UDC PO PRN (23:15)
[2021-11-26] MEDS ORDERED: NITROGLYCERIN 0.4 MG SUBL TABLET SL PRN (23:40)
[2021-11-26] MEDS ORDERED: DEXTROSE 50% 50 ML SYRINGE IV PRN (23:55)
[2021-11-26] MEDS ORDERED: NS 1,000 ML IV SCH (23:55)
[2021-11-26] MEDS ORDERED: GLUCAGON INJ 1MG VIAL SC PRN (23:55)
[2021-11-26] MEDS ORDERED: GLUCOSE 4GM CHEW TABLET PO PRN (23:55)
[2021-11-26 23:57] LABS: RSV AMPLIFICATION NEGATIVE (NEGATIVE)
[2021-11-27] VITALS (8 sets, daily range): BP systolic 107–217; BP diastolic 68–113
[2021-11-27] MEDS: INSULIN LISPRO (NovoLOG) PER UNIT SC SCH ×5 (00:29→21:34)
[2021-11-27] MEDS: HEPARIN SOD (PORCINE) 5000UNITS/ML 1ML VIAL/SYRINGE SC SCH ×3 (05:35→21:22)
[2021-11-27] MEDS ORDERED: ACETAMINOPHEN 500 MG TAB PO PRN (08:30)
[2021-11-27] MEDS: ADVAIR HFA 115/21MCG INHALER INH SCH ×2 (08:32→20:24)
[2021-11-27] MEDS ORDERED: SITagliptin 50 MG TAB (JANUVIA) PO SCH (09:00)
[2021-11-27] MEDS: allopurinoL 100 MG TAB PO SCH (09:26)
[2021-11-27] MEDS: AMIODARONE 200 MG TAB (PACERONE) PO SCH (09:26)
[2021-11-27] MEDS: TORSEMIDE 20 MG TAB PO SCH (09:26)
[2021-11-27] MEDS: OCUVITE 1 TAB PO SCH ×2 (09:26→21:18)
[2021-11-27] MEDS: amLODIPine 5 MG TAB PO SCH (09:26)
[2021-11-27] MEDS: METOPROLOL TART 25 MG TABLET PO SCH ×2 (09:27→21:18)
[2021-11-27] MEDS: BRIMONIDINE 0.1% OPHTH SOLN 5 ML OS SCH ×2 (09:27→21:23)
[2021-11-27] MEDS: CYANOCOBALAMIN 500 MCG TAB PO SCH (09:27)
[2021-11-27] MEDS ORDERED: ISOSORBIDE MON. (IMDUR) 60 MG XR TAB PO SCH (21:00)
[2021-11-27] MEDS ORDERED: PRAVASTATIN 20 MG TAB PO SCH (21:00)
[2021-11-27] MEDS ORDERED: FAMOTIDINE 20 MG TAB PO SCH (21:00)
[2021-11-28 02:00] VITALS: BP 150/72
[2021-11-28 05:31] VITALS: BP 162/78
[2021-11-28] MEDS: HEPARIN SOD (PORCINE) 5000UNITS/ML 1ML VIAL/SYRINGE SC SCH ×2 (05:38→13:33)
[2021-11-28 06:28] LABS: HEMATOCRIT 37.2 % (36.0-47.0); HEMOGLOBIN 11.8 g/dl (12.0-15.5); MEAN CORPUSCULAR HEMOGLOBIN 30.4 pg (27.0-33.0); MEAN CORPUSCULAR HGB CONC 31.7 g/dl (32.0-36.5); MEAN CORPUSCULAR VOLUME 95.9 fl (80.0-96.0); PLATELET COUNT, AUTOMATED 236 10^3/uL (150-450); RED BLOOD COUNT 3.88 10^6/uL (4.00-5.40); WHITE BLOOD COUNT 8.9 10^3/uL (4.0-10.0)
[2021-11-28 06:57] LABS: CALCIUM LEVEL 8.4 MG/DL (8.8-10.2); CREATININE FOR GFR 1.96 MG/DL (0.55-1.30); GLOMERULAR FILTRATION RATE 25.6 (>32)
[2021-11-28] MEDS: ADVAIR HFA 115/21MCG INHALER INH SCH (07:50)
[2021-11-28] MEDS ORDERED: AMLO1TAB24 PO (08:14)
[2021-11-28] MEDS: INSULIN LISPRO (NovoLOG) PER UNIT SC SCH ×2 (08:44→12:32)
[2021-11-28] MEDS: allopurinoL 100 MG TAB PO SCH (08:44)
[2021-11-28] MEDS: CYANOCOBALAMIN 500 MCG TAB PO SCH (08:44)
[2021-11-28] MEDS: OCUVITE 1 TAB PO SCH (08:44)
[2021-11-28] MEDS: TORSEMIDE 20 MG TAB PO SCH (08:45)
[2021-11-28] MEDS: amLODIPine 5 MG TAB PO SCH (08:47)
[2021-11-28 08:48] VITALS: BP 150/70
[2021-11-28] MEDS: AMIODARONE 200 MG TAB (PACERONE) PO SCH (08:48)
[2021-11-28] MEDS: METOPROLOL TART 25 MG TABLET PO SCH (08:48)
[2021-11-28] MEDS: BRIMONIDINE 0.1% OPHTH SOLN 5 ML OS SCH (08:51)
[2021-11-28] MEDS ORDERED: FERROUS SULFATE 325MG TAB PO SCH (09:00)
== END 2021-11-28 14:40 | disposition home or self-care (01) ==
LOC: M ED 19:47 → M ED INP 19:48 → M MS5PR 11-27 01:10
PROVIDERS: ADMIT Family Medicine; ATTEND Internal Medicine
DX: E11.00 Type 2 diabetes mellitus with hyperosmolarity without nonketotic hyperglycemic-hyperosmolar coma (NKHHC) (principal); N18.4 Chronic kidney disease, stage 4 (severe); I12.9 Hypertensive chronic kidney disease with stage 1 through stage 4 chronic kidney disease, or unspecified chronic kidney disease; I50.32 Chronic diastolic (congestive) heart failure; I48.0 Paroxysmal atrial fibrillation; G47.33 Obstructive sleep apnea (adult) (pediatric); M06.9 Rheumatoid arthritis, unspecified; K21.9 Gastro-esophageal reflux disease without esophagitis; H40.9 Unspecified glaucoma; H35.30 Unspecified macular degeneration; Z79.899 Other long term (current) drug therapy; Z79.51 Long term (current) use of inhaled steroids; D64.9 Anemia, unspecified; I25.10 Atherosclerotic heart disease of native coronary artery without angina pectoris; M10.9 Gout, unspecified; K44.9 Diaphragmatic hernia without obstruction or gangrene; Z88.0 Allergy status to penicillin; Z85.828 Personal history of other malignant neoplasm of skin
CPT/HCPCS: 36415; 70450; 70551; 71045; 80048; 81001; 82010; 82550; 82553; 82803; 83930; 84484; 85025; 85027; 85610; 85730; 87086; 87631; 93005; 93041; 94640; 94760; 96374; 96375; 99285; G0378; J1644; J1815

== ENCOUNTER → 2022-04-11 | Outpatient (CLI) | payer MEDICARE ==
[~2022-04-11] MED LIST changes: +ALLO100T PO
== END ==
LOC: M WHC 08:34
PROVIDERS: ATTEND Nurse Practitioner Adult Health
DX: N64.4 Mastodynia (principal); N64.89 Other specified disorders of breast
CPT/HCPCS: 77066; G0279

== ENCOUNTER → 2022-04-17 | Outpatient (CLI) | payer MEDICARE | LOC: M RAD 14:22 | PROVIDERS: ATTEND Nurse Practitioner Adult Health | DX: R06.2 Wheezing (principal); M47.9 Spondylosis, unspecified ==

== ENCOUNTER 2022-10-22 09:39 | Emergency (ER) | payer MEDICARE ==
[~2022-10-22] VITALS: Ht 152.4 cm; Wt 82.7 kg
[2022-10-22] MEDS ORDERED: ACETAMINOPHEN 325 MG TAB PO ONE (09:55)
[2022-10-22] MEDS ORDERED: LIDOCAINE 5% (LIDODERM) PATCH TD ONE (09:55)
[2022-10-22 12:19] VITALS: BP 154/62
== END 2022-10-22 12:42 | disposition home or self-care (01) ==
LOC: M ED 09:39 → EDBD 09:39 → M ED 12:42
DX: M54.50 Low back pain, unspecified (principal); M51.36 Other intervertebral disc degeneration, lumbar region; M51.37 Other intervertebral disc degeneration, lumbosacral region; E11.9 Type 2 diabetes mellitus without complications; I10 Essential (primary) hypertension; G47.30 Sleep apnea, unspecified; D64.9 Anemia, unspecified; Z79.84 Long term (current) use of oral hypoglycemic drugs; Z79.899 Other long term (current) drug therapy; Z88.0 Allergy status to penicillin

== ENCOUNTER → 2022-10-24 | Outpatient (REF) | payer MEDICARE ==
[2022-10-24 19:43] LABS: ATYPICAL LYMPH 7 % (0-5); EOSINOPHILS 7 % (0-3); LYMPHOCYTES 9 % (16-44); MONOCYTES 7 % (0-5); NEUTROPHILS 69 % (28-66); PLATELET ESTIMATE NORMAL (NORMAL)
[2022-10-24 19:44] LABS: ANISOCYTOSIS 1+
== END ==
LOC: M LAB REF 16:21
PROVIDERS: ATTEND Nurse Practitioner Adult Health
DX: D72.9 Disorder of white blood cells, unspecified (principal)

== ENCOUNTER → 2023-04-22 | Outpatient (REF) | payer MEDICARE ==
[~2023-04-22] MED LIST changes: +AMIO100T11 PO; -AMIO100T3 PO; +GLIP5TAB17 PO; -GLIP5TAB8 PO; -HYDR200T3; -HYDR200T3 PO; +HYDR200T46; +HYDR200T46 PO
[2023-04-22 17:25] LABS: PERCENT SATURATION 16.2 % (13.2-45.0)
[2023-04-22 17:27] LABS: FERRITIN 120.9 NG/ML (7.3-270.7)
== END ==
LOC: M LAB REF 16:13
PROVIDERS: ATTEND Internal Medicine
DX: D64.9 Anemia, unspecified (principal)